=== PATIENT | female | born 1935 | race Two or more races ===

== ENCOUNTER 2017-11-12 23:29 | Observation (INO) | payer MEDICAID, MEDICARE, OTHER ==
[~2017-11-12] VITALS: Ht 154.9 cm; Wt 85.9 kg
[2017-11-12] MEDS ORDERED: ALBUTEROL/IPRATROPIUM 2.5MG/0.5MG, 3 ML ONE (23:54)
[2017-11-12 23:59] LABS: BASOPHILS # (AUTO) 0.05 x10^3/uL (0-0.1); BASOPHILS % (AUTO) 1 % (0-1); EOSINOPHILS # (AUTO) 0.21 x10^3/uL (0-0.4); EOSINOPHILS % (AUTO) 2 % (1-7); LYMPHOCYTES # (AUTO) 1.19 x10^3/uL (1-3.4); LYMPHOCYTES % (AUTO) 12 % (22-44); MD NO; MEAN CORPUSCULAR HEMOGLOBIN 29.7 pg (27.0-34.8); MEAN CORPUSCULAR HGB CONC 33.2 g/dL (32.4-35.8); MEAN CORPUSCULAR VOLUME 89.3 fL (80-100); MEAN PLATELET VOLUME 8.1 fL (7.4-10.4); MONOCYTES # (AUTO) 0.41 x10^3/uL (0.2-0.8); MONOCYTES % (AUTO) 4 % (2-9); NEUTROPHILS # (AUTO) 8.38 x10^3/uL (1.8-6.8); NEUTROPHILS % (AUTO) 82 % (42-75); PLATELET COUNT 220 x10^3/uL (130-400); RED BLOOD COUNT 4.22 x10^6/uL (3.82-5.3); RED CELL DISTRIBUTION WIDTH 13.7 % (9.6-15.2)
[2017-11-13] MEDS ORDERED: ALBUTEROL SULFATE 2.5 MG/3 ML NPPB ONE
[2017-11-13] MEDS ORDERED: IPRATROPIUM 0.5 MG/2.5 ML INHA NPPB ONE
[2017-11-13 00:08] LABS: ALBUMIN 3.2 g/dL (3.4-5.0); ANION GAP 4 mmol/L (5-15); CALCIUM 8.5 mg/dL (8.5-10.1); CHLORIDE 103 mmol/L (98-107); CREATININE 0.87 mg/dL (0.55-1.02)
[2017-11-13 00:12] LABS: TROPONIN I < 0.015 ng/mL (0.000-0.045)
[2017-11-13] MEDS ORDERED: OMNIPAQUE 350 MG/ML, 100ML BOTTLE ONE (01:06)
[2017-11-13] MEDS ORDERED: ALBUTEROL/IPRATROPIUM 2.5MG/0.5MG, 3 ML ONE (02:27)
[2017-11-13] MEDS ORDERED: ALBUTEROL/IPRATROPIUM 2.5MG/0.5MG, 3 ML NPPB ONE (02:30)
[2017-11-13] MEDS ORDERED: AZITHROMYCIN 500 MG TABLET PO ONE (02:30)
[2017-11-13] MEDS ORDERED: SODIUM CHLORIDE 0.9% 1,000 ML IV SCH (02:35)
[2017-11-13] MEDS ORDERED: AZITHROMYCIN 250 MG TABLET ONE (02:46)
[2017-11-13] MEDS ORDERED: ACETAMINOPHEN 325 MG TABLET PO PRN (03:00)
[2017-11-13] MEDS ORDERED: ONDANSETRON 2MG/ML, 2ML IVPush PRN (03:00)
[2017-11-13] MEDS ORDERED: hydrALAzine 20 MG/ML, 1ML IVPush PRN (03:00)
[2017-11-13] MEDS ORDERED: GUAIFENESIN/DM 200-20MG, 10ML UDC PO PRN (03:00)
[2017-11-13] MEDS ORDERED: ONDANSETRON ODT 4 MG PO PRN (03:00)
[2017-11-13] MEDS ORDERED: methylPREDNISolone SOD SUCC 40 MG/ML IVPush SCH (03:00)
[2017-11-13] MEDS ORDERED: POLYETHYLENE GLYCOL 17 GM PACKET PO PRN (03:00)
[2017-11-13] MEDS ORDERED: ALBUTEROL/IPRATROPIUM 2.5MG/0.5MG, 3 ML NPPB PRN (03:30)
[2017-11-13] MEDS: ALBUTEROL/IPRATROPIUM 2.5MG/0.5MG, 3 ML NPPB SCH ×6 (04:41→23:14)
[2017-11-13 07:09] VITALS: BP 118/77
[2017-11-13] MEDS: HEPARIN 5,000 UNITS/ML, 1ML SQ SCH ×2 (08:03→17:24)
[2017-11-13] MEDS ORDERED: METO1TAB32 PO (12:16)
[2017-11-13] MEDS ORDERED: METF500S5 PO (12:16)
[2017-11-13] MEDS ORDERED: FURO40TA6 PO (12:16)
[2017-11-13] MEDS ORDERED: MELO7.5O PO (12:34)
[2017-11-13] MEDS ORDERED: LIOT25TA3 PO (12:37)
[2017-11-13 13:09] VITALS: BP 114/71
[2017-11-13 13:41] VITALS: BP 155/69
[2017-11-13 20:00] VITALS: BP 134/83
[2017-11-13] MEDS ORDERED: ZOLPIDEM 10MG TABLET PO PRN (23:00)
[2017-11-14 01:25] VITALS: BP 152/89
[2017-11-14] MEDS: HEPARIN 5,000 UNITS/ML, 1ML SQ SCH ×2 (01:26→09:54)
[2017-11-14 02:28] LABS: HEMOGLOBIN A1C 6.5 % (4.2-6.3)
[2017-11-14] MEDS ORDERED: SODIUM CHLORIDE 0.9% 1,000 ML IV SCH (02:35)
[2017-11-14] MEDS: ALBUTEROL/IPRATROPIUM 2.5MG/0.5MG, 3 ML NPPB SCH ×2 (05:45→11:25)
[2017-11-14 07:32] VITALS: BP 148/85
[2017-11-14] MEDS ORDERED: CARVEDILOL 6.25 MG TABLET PO SCH (08:00)
[2017-11-14] MEDS ORDERED: CARV6.2512 PO (10:20)
[2017-11-14] MEDS ORDERED: ACET325T14 PO (10:20)
[2017-11-14] MEDS ORDERED: IPRA4AER PO (10:29)
== END 2017-11-14 12:20 | disposition home or self-care (01) ==
LOC: SUATTDRO 11-13 02:34 → ED 11-13 02:48 → INTOOBSV 11-13 03:02 → EDIP 11-13 03:02 → 4NOR 11-13 03:03 → DCLOUNGE 11-14 12:12
PROVIDERS: ADMIT Hospitalist; ATTEND Hospitalist
DX: J96.00 Acute respiratory failure, unspecified whether with hypoxia or hypercapnia (principal); J44.1 Chronic obstructive pulmonary disease with (acute) exacerbation; J98.11 Atelectasis; R60.0 Localized edema; E66.9 Obesity, unspecified; I11.9 Hypertensive heart disease without heart failure; T38.0X5A Adverse effect of glucocorticoids and synthetic analogues, initial encounter; G47.00 Insomnia, unspecified; E11.65 Type 2 diabetes mellitus with hyperglycemia; Z90.49 Acquired absence of other specified parts of digestive tract; Z88.2 Allergy status to sulfonamides; Z91.041 Radiographic dye allergy status; Z79.84 Long term (current) use of oral hypoglycemic drugs; Z79.899 Other long term (current) drug therapy; Z68.35 Body mass index [BMI] 35.0-35.9, adult; Z99.81 Dependence on supplemental oxygen; Z96.612 Presence of left artificial shoulder joint; Y92.89 Other specified places as the place of occurrence of the external cause
CPT/HCPCS: 36415; 71045; 71275; 80048; 82040; 83036; 83605; 83880; 84484; 85025; 85379; 93005; 94640; 96360; 96361; 96372; 97163; 99285; G0378; J1644; J7030; J7512; J7613; J7620; J7644; Q9967

== ENCOUNTER 2017-11-29 15:40 | Inpatient (IN) | payer MEDICARE ==
[~2017-11-29] VITALS: Ht 157.5 cm; Wt 68.1 kg
[~2017-11-29 15:40] MED LIST: ACET325T14 PO; CARV6.2512 PO; FURO40TA6 PO; IPRA4AER PO; LIOT25TA3 PO; MELO7.5O PO; METF500S5 PO; METO1TAB32 PO
[2017-11-29] MEDS ORDERED: ALBUTEROL SULFATE 2.5 MG/3 ML ONE (15:54)
[2017-11-29] MEDS ORDERED: methylPREDNISolone SOD SUCC 125 MG/2 ML ONE (15:55)
[2017-11-29] MEDS ORDERED: methylPREDNISolone SOD SUCC 125 MG/2 ML IVP ONE (16:00)
[2017-11-29] MEDS ORDERED: PLEASE ENTER ALLERGIES MC SCH (16:00)
[2017-11-29] MEDS ORDERED: SODIUM CHLORIDE FLUSH 10ML SYR IVF ONE (16:00)
[2017-11-29] MEDS: PLEASE ENTER HEIGHT AND WEIGHT MC SCH ×2 (16:00→23:44)
[2017-11-29] MEDS ORDERED: ALBUTEROL SULFATE 2.5 MG/3 ML NPPB ONE (16:00)
[2017-11-29 16:01] LABS: MEAN CORPUSCULAR HEMOGLOBIN 29.6 pg (27.0-34.8); MEAN CORPUSCULAR HGB CONC 32.1 g/dL (32.4-35.8); MEAN CORPUSCULAR VOLUME 92.3 fL (80-100); MEAN PLATELET VOLUME 9.4 fL (7.4-10.4); PLATELET COUNT 244 x10^3/uL (130-400); RED BLOOD COUNT 4.35 x10^6/uL (3.82-5.3); RED CELL DISTRIBUTION WIDTH 13.8 % (9.6-15.2)
[2017-11-29 16:10] LABS: INTERNATIONAL NORMALIZED RATIO 0.93 (0.93-1.1); PROTHROMBIN TIME 9.6 Seconds (9.6-11.5)
[2017-11-29 16:35] LABS: BASOPHILS # (AUTO) 0.76 x10^3/uL (0-0.1); BASOPHILS % (AUTO) 10 % (0-1); EOSINOPHILS # (AUTO) 0.68 x10^3/uL (0-0.4); EOSINOPHILS % (AUTO) 9 % (1-7); LYMPHOCYTES # (AUTO) 2.14 x10^3/uL (1-3.4); LYMPHOCYTES % (AUTO) 29 % (22-44); MD SCAN; MONOCYTES # (AUTO) 0.59 x10^3/uL (0.2-0.8); MONOCYTES % (AUTO) 8 % (2-9); NEUTROPHILS # (AUTO) 3.12 x10^3/uL (1.8-6.8); NEUTROPHILS % (AUTO) 43 % (42-75)
[2017-11-29 16:45] LABS: ALBUMIN 3.5 g/dL (3.4-5.0); ANION GAP 17 mmol/L (5-15); CALCIUM 8.9 mg/dL (8.5-10.1); CHLORIDE 103 mmol/L (98-107); CREATININE 1.01 mg/dL (0.55-1.02)
[2017-11-29 16:49] LABS: TROPONIN I 0.091 ng/mL (0.000-0.045)
[2017-11-29] MEDS ORDERED: ACETAMINOPHEN 325 MG TABLET PO PRN ×2 (17:30)
[2017-11-29] MEDS ORDERED: hydrALAzine 20 MG/ML, 1ML IVPush PRN (17:30)
[2017-11-29] MEDS ORDERED: HEPARIN 5,000 UNITS/ML, 1ML SQ SCH (17:30)
[2017-11-29] MEDS ORDERED: ONDANSETRON 2MG/ML, 2ML IVPush PRN (17:30)
[2017-11-29] MEDS ORDERED: ONDANSETRON ODT 4 MG PO PRN (17:30)
[2017-11-29] MEDS ORDERED: DOCUSATE 100 MG CAPSULE PO PRN (17:30)
[2017-11-29] MEDS ORDERED: LABETALOL 5MG/ML, 20ML IVPush PRN (17:30)
[2017-11-29] MEDS ORDERED: BUDE10.2 INH (17:55)
[2017-11-29] MEDS ORDERED: BERBERINE (17:55)
[2017-11-29] MEDS ORDERED: METO200T47 PO (17:55)
[2017-11-29] MEDS ORDERED: GARL400T5 PO (17:55)
[2017-11-29] MEDS ORDERED: ESCI10TA PO (17:55)
[2017-11-29] MEDS ORDERED: FURO20TA3 PO (17:55)
[2017-11-29] MEDS ORDERED: MELO7.5T31 PO (17:55)
[2017-11-29] MEDS ORDERED: [UNRECOGNIZED DRUG - OTHER] (17:55)
[2017-11-29 18:31] VITALS: BP 114/76
[2017-11-29] MEDS: ALBUTEROL/IPRATROPIUM 2.5MG/0.5MG, 3 ML NPPB SCH ×2 (18:57→23:00)
[2017-11-29] MEDS ORDERED: ALBUTEROL/IPRATROPIUM 2.5MG/0.5MG, 3 ML NPPB SCH (21:00)
[2017-11-29] MEDS: CARVEDILOL 6.25 MG TABLET PO SCH (21:00)
[2017-11-29] MEDS: methylPREDNISolone SOD SUCC 125 MG/2 ML IVPush SCH (21:01)
[2017-11-29] MEDS ORDERED: HEPARIN 5,000 UNITS/ML, 1ML IV ONE (22:30)
[2017-11-29] MEDS ORDERED: HEPARIN 5,000 UNITS/ML, 1ML IV PRN (22:30)
[2017-11-29] MEDS ORDERED: HEPARIN 25,000 UNITS/500ML PMX 500 ML IV PRN (22:30)
[2017-11-30] MEDS ORDERED: DIPHENHYDRAMINE 50 MG/ML, 1ML IVPush ONE ×2 (00:30→15:30)
[2017-11-30 00:39] VITALS: BP 126/85
[2017-11-30] MEDS ORDERED: OMNIPAQUE 350 MG/ML, 100ML BOTTLE ONE (01:32)
[2017-11-30 01:51] VITALS: BP 139/78
[2017-11-30 02:30] VITALS: BP 121/79
[2017-11-30] MEDS ORDERED: MORPHINE SULFATE 4 MG/ML, 1ML IVPush PRN (02:30)
[2017-11-30] MEDS: ALBUTEROL/IPRATROPIUM 2.5MG/0.5MG, 3 ML NPPB SCH ×6 (02:56→19:43)
[2017-11-30] MEDS: CARVEDILOL 6.25 MG TABLET PO SCH ×2 (05:24→18:15)
[2017-11-30] MEDS: methylPREDNISolone SOD SUCC 125 MG/2 ML IVPush SCH ×3 (05:24→22:07)
[2017-11-30 06:03] LABS: ANION GAP 8 mmol/L (5-15); CALCIUM 9.2 mg/dL (8.5-10.1); CHLORIDE 102 mmol/L (98-107); CREATININE 0.96 mg/dL (0.55-1.02)
[2017-11-30 06:06] LABS: BASOPHILS % (AUTO) 0 % (0-1); EOSINOPHILS # (AUTO) 0.02 x10^3/uL (0-0.4); EOSINOPHILS % (AUTO) 0 % (1-7); LYMPHOCYTES # (AUTO) 0.63 x10^3/uL (1-3.4); LYMPHOCYTES % (AUTO) 10 % (22-44); MD NO; MEAN CORPUSCULAR HEMOGLOBIN 29.9 pg (27.0-34.8); MEAN CORPUSCULAR HGB CONC 32.9 g/dL (32.4-35.8); MEAN PLATELET VOLUME 9.2 fL (7.4-10.4); MONOCYTES # (AUTO) 0.06 x10^3/uL (0.2-0.8); MONOCYTES % (AUTO) 1 % (2-9); NEUTROPHILS # (AUTO) 5.48 x10^3/uL (1.8-6.8); NEUTROPHILS % (AUTO) 89 % (42-75); PLATELET COUNT 229 x10^3/uL (130-400); RED BLOOD COUNT 4.16 x10^6/uL (3.82-5.3); RED CELL DISTRIBUTION WIDTH 13.4 % (9.6-15.2)
[2017-11-30 06:12] LABS: THYROID STIMULATING HORMONE 0.181 mIU/L (0.358-3.740)
[2017-11-30] MEDS: INSULIN LISPRO 100 UNITS/ML, PEN SQ-INSULIN SCH ×4 (07:00→22:08)
[2017-11-30 07:50] VITALS: BP 125/76
[2017-11-30] MEDS ORDERED: ASPIRIN 325 MG TABLET EC PO ONE (08:30)
[2017-11-30] MEDS: LIOTHYRONINE 25 MCG TABLET PO SCH (08:50)
[2017-11-30] MEDS ORDERED: FENTANYL PF 100 MCG/2ML ONE (13:35)
[2017-11-30] MEDS ORDERED: MIDAZOLAM 1 MG/ML, 5ML ONE (13:36)
[2017-11-30] MEDS ORDERED: methylPREDNISolone SOD SUCC 125 MG/2 ML ONE (13:36)
[2017-11-30] MEDS ORDERED: VERAPAMIL 2.5 MG/ML, 2ML ONE (13:36)
[2017-11-30] MEDS ORDERED: DIPHENHYDRAMINE 50 MG/ML, 1ML ONE (13:49)
[2017-11-30] MEDS ORDERED: methylPREDNISolone SOD SUCC 125 MG/2 ML IVPush SCH (15:30)
[2017-11-30] MEDS ORDERED: LIDOCAINE/PF 1%, 30ML ONE (15:31)
[2017-11-30] MEDS ORDERED: CLOPIDOGREL 300 MG TABLET ONE (15:41)
[2017-11-30] MEDS ORDERED: BIVALIRUDIN 250 MG ONE (15:41)
[2017-11-30] MEDS: SODIUM CHLORIDE 0.9% 1,000 ML IV SCH (16:12)
[2017-11-30] MEDS: NORTRIPTYLINE 10 MG CAPSULE PO SCH ×2 (18:15→22:06)
[2017-11-30 20:15] VITALS: BP 109/70
[2017-12-01] MEDS: SODIUM CHLORIDE 0.9% 1,000 ML IV SCH ×2 (00:12→08:12)
[2017-12-01 02:06] VITALS: BP 115/73
[2017-12-01] MEDS ORDERED: ALBUTEROL/IPRATROPIUM 2.5MG/0.5MG, 3 ML NPPB PRN (03:00)
[2017-12-01] MEDS: CARVEDILOL 6.25 MG TABLET PO SCH (05:17)
[2017-12-01] MEDS: methylPREDNISolone SOD SUCC 125 MG/2 ML IVPush SCH (05:17)
[2017-12-01 05:40] LABS: ALBUMIN 3.2 g/dL (3.4-5.0); ANION GAP 8 mmol/L (5-15); CALCIUM 9.4 mg/dL (8.5-10.1); CHLORIDE 103 mmol/L (98-107); CREATININE 0.91 mg/dL (0.55-1.02)
[2017-12-01 06:50] VITALS: BP 131/77
[2017-12-01] MEDS: INSULIN LISPRO 100 UNITS/ML, PEN SQ-INSULIN SCH (07:00)
[2017-12-01] MEDS: ALBUTEROL/IPRATROPIUM 2.5MG/0.5MG, 3 ML NPPB SCH (07:25)
[2017-12-01] MEDS: NORTRIPTYLINE 10 MG CAPSULE PO SCH (08:01)
[2017-12-01] MEDS: LIOTHYRONINE 25 MCG TABLET PO SCH (08:01)
[2017-12-01] MEDS ORDERED: CLOPIDOGREL 75 MG TABLET PO SCH (09:00)
[2017-12-01] MEDS ORDERED: CARV6.2512 PO (10:08)
[2017-12-01] MEDS ORDERED: CLOP75TA PO (10:08)
[2017-12-01] MEDS ORDERED: ASPI-621 PO (10:08)
[2017-12-01] MEDS ORDERED: ATOR40TA78 PO (10:23)
[2017-12-01 11:15] LABS: CHOL/HDL RATIO 3.3; LDL/HDL RATIO 2.1 (0.5-3.0)
[2017-12-01] MEDS ORDERED: ATORVASTATIN 40 MG TABLET PO SCH (21:00)
== END 2017-12-01 12:24 | disposition home or self-care (01) | DRG 248 ==
LOC: EDBD → MERGE 15:40 → ED 17:21 → EDIP 17:22 → ED 17:32 → 5SO 18:26
PROVIDERS: ADMIT Internal Medicine; ATTEND Internal Medicine
PROC: 4A023N7 Measurement of Cardiac Sampling and Pressure, Left Heart, Percutaneous Approach (ICD-10-PCS; principal; 2017-11-29)
PROC: 02703DZ Dilation of Coronary Artery, One Artery with Intraluminal Device, Percutaneous Approach (ICD-10-PCS; 2017-11-29)
PROC: B2111ZZ Fluoroscopy of Multiple Coronary Arteries using Low Osmolar Contrast (ICD-10-PCS; 2017-11-29)
PROC: B2151ZZ Fluoroscopy of Left Heart using Low Osmolar Contrast (ICD-10-PCS; 2017-11-29)
PROC: B4101ZZ Fluoroscopy of Abdominal Aorta using Low Osmolar Contrast (ICD-10-PCS; 2017-11-29)
PROC: B41J1ZZ Fluoroscopy of Other Lower Arteries using Low Osmolar Contrast (ICD-10-PCS; 2017-11-29)
DX: I21.4 Non-ST elevation (NSTEMI) myocardial infarction (principal); J96.21 Acute and chronic respiratory failure with hypoxia; J44.1 Chronic obstructive pulmonary disease with (acute) exacerbation; I10 Essential (primary) hypertension; F32.9 Major depressive disorder, single episode, unspecified; E11.65 Type 2 diabetes mellitus with hyperglycemia; E03.9 Hypothyroidism, unspecified; I25.110 Atherosclerotic heart disease of native coronary artery with unstable angina pectoris; K21.9 Gastro-esophageal reflux disease without esophagitis; Z82.5 Family history of asthma and other chronic lower respiratory diseases; Z87.891 Personal history of nicotine dependence; Z90.710 Acquired absence of both cervix and uterus; Z99.81 Dependence on supplemental oxygen; Z88.2 Allergy status to sulfonamides; Z91.041 Radiographic dye allergy status
CPT/HCPCS: 36415; 71045; 71275; 80048; 80061; 82040; 82962; 83880; 84443; 84484; 85014; 85018; 85025; 85379; 85520; 85610; 85730; 86850; 86900; 90656; 92928; 93005; 93306; 93458; 94640; 99156; 99157; 99285; C1760; C1769; C1876; C1894; G0378; J0583; J1644; J2250; J3010; J3490; J7613; J7620; Q9967; C1725; C1887; J1200; J1815; J2930

== ENCOUNTER 2017-12-23 13:28 | Inpatient (IN) | payer MEDICARE ==
[~2017-12-23] VITALS: Ht 154.9 cm; Wt 78.2 kg
[~2017-12-23 13:28] MED LIST changes: +ASPI-621 PO; +ATOR40TA78 PO; +BERBERINE; +BUDE10.2 INH; +CLOP75TA PO; +ESCI10TA PO; +FURO20TA3 PO; +GARL400T5 PO; +MELO7.5T31 PO; +METO200T47 PO; +[UNRECOGNIZED DRUG - OTHER]
[2017-12-23] MEDS ORDERED: ASPIRIN 81 MG TABLET CHEW PO ONE (14:00)
[2017-12-23] MEDS ORDERED: LORazepam 2 MG/ML, 1ML IVPush ONE (14:00)
[2017-12-23 14:18] LABS: BASOPHILS # (AUTO) 0.07 x10^3/uL (0-0.1); BASOPHILS % (AUTO) 1 % (0-1); EOSINOPHILS # (AUTO) 0.64 x10^3/uL (0-0.4); EOSINOPHILS % (AUTO) 10 % (1-7); LYMPHOCYTES # (AUTO) 1.08 x10^3/uL (1-3.4); LYMPHOCYTES % (AUTO) 17 % (22-44); MD NO; MEAN CORPUSCULAR HEMOGLOBIN 29.7 pg (27.0-34.8); MEAN CORPUSCULAR VOLUME 90.1 fL (80-100); MEAN PLATELET VOLUME 8.8 fL (7.4-10.4); MONOCYTES # (AUTO) 0.67 x10^3/uL (0.2-0.8); MONOCYTES % (AUTO) 11 % (2-9); NEUTROPHILS # (AUTO) 3.72 x10^3/uL (1.8-6.8); NEUTROPHILS % (AUTO) 60 % (42-75); PLATELET COUNT 213 x10^3/uL (130-400); RED CELL DISTRIBUTION WIDTH 13.6 % (9.6-15.2)
[2017-12-23 14:27] LABS: ALBUMIN 3.4 g/dL (3.4-5.0); ANION GAP 6 mmol/L (5-15); CALCIUM 8.8 mg/dL (8.5-10.1); CHLORIDE 106 mmol/L (98-107); CREATININE 0.98 mg/dL (0.55-1.02)
[2017-12-23] MEDS ORDERED: CEFTRIAXONE PMX 1GM/50ML 50 ML IVPB ONE (14:30)
[2017-12-23 14:31] LABS: TROPONIN I < 0.015 ng/mL (0.000-0.045)
[2017-12-23] MEDS ORDERED: ALBUTEROL/IPRATROPIUM 2.5MG/0.5MG, 3 ML ONE ×2 (14:43→15:22)
[2017-12-23] MEDS: ALBUTEROL/IPRATROPIUM 2.5MG/0.5MG, 3 ML NPPB SCH ×4 (14:46→19:12)
[2017-12-23] MEDS ORDERED: ALBUTEROL/IPRATROPIUM 2.5MG/0.5MG, 3 ML NPPB SCH (15:00)
[2017-12-23] MEDS ORDERED: ASPIRIN 81 MG TABLET CHEW ONE (15:03)
[2017-12-23] MEDS ORDERED: CEFTRIAXONE PMX 1GM/50ML 50 ML ONE (15:03)
[2017-12-23] MEDS ORDERED: LORazepam 2 MG/ML, 1ML ONE (15:03)
[2017-12-23] MEDS ORDERED: SODIUM CHLORIDE FLUSH 10ML SYR IVF PRN (15:30)
[2017-12-23] MEDS ORDERED: hydrALAzine 20 MG/ML, 1ML IVPush PRN (16:00)
[2017-12-23] MEDS ORDERED: morphine SULFATE 10 MG/ML, 1ML IVPush PRN (16:00)
[2017-12-23] MEDS ORDERED: ONDANSETRON 2MG/ML, 2ML IVPush PRN (16:00)
[2017-12-23] MEDS ORDERED: ALBUTEROL/IPRATROPIUM 2.5MG/0.5MG, 3 ML NPPB PRN (16:30)
[2017-12-23] MEDS: INSULIN LISPRO 100 UNITS/ML, PEN SQ-INSULIN SCH ×2 (16:30→21:36)
[2017-12-23 16:47] VITALS: BP 141/86
[2017-12-23] MEDS: CEFTRIAXONE PMX 1GM/50ML 50 ML IV SCH (17:30)
[2017-12-23] MEDS: ENOXAPARIN 40 MG/0.4 ML SQ SCH (17:37)
[2017-12-23] MEDS: CALCIUM/VITAMIN D3 250-125 TABLET PO SCH ×2 (17:38→21:00)
[2017-12-23] MEDS: methylPREDNISolone SOD SUCC 125 MG/2 ML IVPush SCH ×2 (17:38→22:36)
[2017-12-23] MEDS: AZITHROMYCIN 500 MG in SODIUM CHLORIDE 0.9% 250 ML IV SCH (17:38)
[2017-12-23] MEDS: CARVEDILOL 6.25 MG TABLET PO SCH (17:38)
[2017-12-23 19:54] VITALS: BP 135/85
[2017-12-23] MEDS: ZOLPIDEM 5MG TABLET PO PRN (21:00)
[2017-12-23] MEDS: ATORVASTATIN 40 MG TABLET PO SCH (21:00)
[2017-12-24 02:16] VITALS: BP 156/104
[2017-12-24] MEDS: ALBUTEROL/IPRATROPIUM 2.5MG/0.5MG, 3 ML NPPB SCH ×6 (03:25→23:00)
[2017-12-24] MEDS ORDERED: GABAPENTIN 300 MG CAPSULE ONE (03:42)
[2017-12-24] MEDS: GABAPENTIN 300 MG CAPSULE PO SCH ×4 (03:44→16:44)
[2017-12-24] MEDS ORDERED: GABAPENTIN 300 MG CAPSULE PO SCH ×3 (04:00→18:00)
[2017-12-24] MEDS ORDERED: METO-264 PO (06:30)
[2017-12-24] MEDS ORDERED: FURO20TA3 PO (06:30)
[2017-12-24] MEDS ORDERED: LEVO25TA2 PO (06:30)
[2017-12-24] MEDS: methylPREDNISolone SOD SUCC 125 MG/2 ML IVPush SCH ×3 (06:32→16:44)
[2017-12-24] MEDS: CARVEDILOL 6.25 MG TABLET PO SCH ×2 (06:32→16:45)
[2017-12-24] MEDS: ACETAMINOPHEN 325 MG TABLET PO PRN ×2 (06:42→11:28)
[2017-12-24] MEDS: INSULIN LISPRO 100 UNITS/ML, PEN SQ-INSULIN SCH ×4 (07:00→20:41)
[2017-12-24 07:33] VITALS: BP 147/86
[2017-12-24] MEDS: GUAIFENESIN ER 600 MG TABLET PO SCH ×2 (09:00→20:33)
[2017-12-24 09:27] LABS: BASOPHILS # (AUTO) 0.01 x10^3/uL (0-0.1); BASOPHILS % (AUTO) 0 % (0-1); EOSINOPHILS % (AUTO) 0 % (1-7); LYMPHOCYTES % (AUTO) 11 % (22-44); MD NO; MEAN CORPUSCULAR HEMOGLOBIN 29.3 pg (27.0-34.8); MEAN CORPUSCULAR HGB CONC 32.7 g/dL (32.4-35.8); MEAN CORPUSCULAR VOLUME 89.7 fL (80-100); MEAN PLATELET VOLUME 8.4 fL (7.4-10.4); MONOCYTES # (AUTO) 0.05 x10^3/uL (0.2-0.8); MONOCYTES % (AUTO) 1 % (2-9); NEUTROPHILS # (AUTO) 3.97 x10^3/uL (1.8-6.8); NEUTROPHILS % (AUTO) 88 % (42-75); PLATELET COUNT 197 x10^3/uL (130-400); RED BLOOD COUNT 3.95 x10^6/uL (3.82-5.3); RED CELL DISTRIBUTION WIDTH 13.5 % (9.6-15.2)
[2017-12-24 09:39] LABS: ALANINE AMINOTRANSFERASE 23 U/L (12-78); ALBUMIN 3.4 g/dL (3.4-5.0); ANION GAP 6 mmol/L (5-15); CALCIUM 9.4 mg/dL (8.5-10.1); CHLORIDE 103 mmol/L (98-107); CREATININE 0.71 mg/dL (0.55-1.02)
[2017-12-24 09:41] LABS: ALKALINE PHOSPHATASE 100 U/L (45-117); BILIRUBIN,TOTAL 0.3 mg/dL (0.2-1.0); TOTAL PROTEIN 6.3 g/dL (6.4-8.2)
[2017-12-24 10:34] LABS: HEMOGLOBIN A1C 6.9 % (4.2-6.3)
[2017-12-24] MEDS: CALCIUM/VITAMIN D3 250-125 TABLET PO SCH ×3 (11:27→20:33)
[2017-12-24] MEDS: ASPIRIN 81 MG TABLET EC PO SCH (11:28)
[2017-12-24] MEDS: LIOTHYRONINE 25 MCG TABLET PO SCH (11:28)
[2017-12-24 13:30] VITALS: BP 101/73
[2017-12-24] MEDS: CEFTRIAXONE PMX 1GM/50ML 50 ML IV SCH (16:43)
[2017-12-24] MEDS: ENOXAPARIN 40 MG/0.4 ML SQ SCH (16:44)
[2017-12-24] MEDS: AZITHROMYCIN 500 MG in SODIUM CHLORIDE 0.9% 250 ML IV SCH (16:47)
[2017-12-24 19:58] VITALS: BP 129/74
[2017-12-24] MEDS: ATORVASTATIN 40 MG TABLET PO SCH (20:33)
[2017-12-25] MEDS: methylPREDNISolone SOD SUCC 125 MG/2 ML IVPush SCH ×2 (00:37→05:20)
[2017-12-25 02:17] VITALS: BP 120/75
[2017-12-25] MEDS: ALBUTEROL/IPRATROPIUM 2.5MG/0.5MG, 3 ML NPPB SCH ×6 (03:00→19:00)
[2017-12-25] MEDS: CARVEDILOL 6.25 MG TABLET PO SCH ×2 (05:21→18:32)
[2017-12-25 06:59] VITALS: BP 141/92
[2017-12-25] MEDS: INSULIN LISPRO 100 UNITS/ML, PEN SQ-INSULIN SCH ×4 (07:47→19:49)
[2017-12-25] MEDS: GABAPENTIN 300 MG CAPSULE PO SCH ×3 (07:49→18:30)
[2017-12-25] MEDS: GUAIFENESIN ER 600 MG TABLET PO SCH ×2 (07:50→19:58)
[2017-12-25] MEDS: CALCIUM/VITAMIN D3 250-125 TABLET PO SCH ×3 (07:50→19:58)
[2017-12-25] MEDS: ASPIRIN 81 MG TABLET EC PO SCH (07:50)
[2017-12-25] MEDS: LIOTHYRONINE 25 MCG TABLET PO SCH (07:50)
[2017-12-25 07:57] LABS: BASOPHILS % (AUTO) 0 % (0-1); EOSINOPHILS % (AUTO) 0 % (1-7); LYMPHOCYTES # (AUTO) 0.34 x10^3/uL (1-3.4); LYMPHOCYTES % (AUTO) 4 % (22-44); MD NO; MEAN CORPUSCULAR HEMOGLOBIN 29.6 pg (27.0-34.8); MEAN CORPUSCULAR HGB CONC 33.1 g/dL (32.4-35.8); MEAN CORPUSCULAR VOLUME 89.5 fL (80-100); MEAN PLATELET VOLUME 8.9 fL (7.4-10.4); MONOCYTES # (AUTO) 0.33 x10^3/uL (0.2-0.8); MONOCYTES % (AUTO) 3 % (2-9); NEUTROPHILS # (AUTO) 8.93 x10^3/uL (1.8-6.8); NEUTROPHILS % (AUTO) 93 % (42-75); PLATELET COUNT 202 x10^3/uL (130-400); RED BLOOD COUNT 4.02 x10^6/uL (3.82-5.3); RED CELL DISTRIBUTION WIDTH 13.3 % (9.6-15.2)
[2017-12-25] MEDS: CITALOPRAM 20 MG TABLET PO SCH (08:02)
[2017-12-25 08:03] LABS: ANION GAP 8 mmol/L (5-15); CALCIUM 8.7 mg/dL (8.5-10.1); CHLORIDE 104 mmol/L (98-107)
[2017-12-25 14:52] VITALS: BP_SYST 124; BP_SYST 136; BP_DIAS 65; BP_DIAS 76
[2017-12-25] MEDS: CEFTRIAXONE PMX 1GM/50ML 50 ML IV SCH (17:39)
[2017-12-25] MEDS: ENOXAPARIN 40 MG/0.4 ML SQ SCH (17:40)
[2017-12-25] MEDS: AZITHROMYCIN 500 MG in SODIUM CHLORIDE 0.9% 250 ML IV SCH (18:30)
[2017-12-25 18:51] VITALS: BP 140/78
[2017-12-25] MEDS: ATORVASTATIN 40 MG TABLET PO SCH (19:58)
[2017-12-25] MEDS: ZOLPIDEM 5MG TABLET PO PRN (19:58)
[2017-12-26 02:01] VITALS: BP 131/80
[2017-12-26] MEDS: ALBUTEROL/IPRATROPIUM 2.5MG/0.5MG, 3 ML NPPB SCH ×3 (03:00→09:45)
[2017-12-26] MEDS: CARVEDILOL 6.25 MG TABLET PO SCH (05:46)
[2017-12-26] MEDS: INSULIN LISPRO 100 UNITS/ML, PEN SQ-INSULIN SCH ×2 (07:00→11:18)
[2017-12-26 07:15] VITALS: BP 139/74
[2017-12-26] MEDS: CALCIUM/VITAMIN D3 250-125 TABLET PO SCH (07:31)
[2017-12-26] MEDS: LIOTHYRONINE 25 MCG TABLET PO SCH (07:31)
[2017-12-26] MEDS: ASPIRIN 81 MG TABLET EC PO SCH (07:31)
[2017-12-26] MEDS: GABAPENTIN 300 MG CAPSULE PO SCH ×2 (07:32→11:13)
[2017-12-26] MEDS: CITALOPRAM 20 MG TABLET PO SCH (07:32)
[2017-12-26] MEDS: GUAIFENESIN ER 600 MG TABLET PO SCH (07:32)
[2017-12-26] MEDS ORDERED: PRED20TA PO (08:27)
[2017-12-26] MEDS ORDERED: IPRA3AMP30 NPPB (08:27)
[2017-12-26] MEDS ORDERED: GUAI600T31 PO (08:27)
[2017-12-26] MEDS ORDERED: IPRA4AER PO (08:27)
[2017-12-26] MEDS ORDERED: AZIT250T89 PO (08:27)
[2017-12-26] MEDS ORDERED: CEFD300C37 PO (08:27)
== END 2017-12-26 13:40 | disposition home health service (06) | DRG 871 ==
LOC: ED 15:58 → EDIP 15:59 → 3NE 16:28 → DCLOUNGE 12-26 13:15
PROVIDERS: ADMIT Internal Medicine; ATTEND Internal Medicine
DX: A41.9 Sepsis, unspecified organism (principal); J15.9 Unspecified bacterial pneumonia; J96.11 Chronic respiratory failure with hypoxia; J44.0 Chronic obstructive pulmonary disease with (acute) lower respiratory infection; J44.1 Chronic obstructive pulmonary disease with (acute) exacerbation; M41.9 Scoliosis, unspecified; M81.0 Age-related osteoporosis without current pathological fracture; E03.9 Hypothyroidism, unspecified; E11.9 Type 2 diabetes mellitus without complications; I11.9 Hypertensive heart disease without heart failure; Z95.5 Presence of coronary angioplasty implant and graft; Z99.81 Dependence on supplemental oxygen; Z88.3 Allergy status to other anti-infective agents; Z88.2 Allergy status to sulfonamides; I25.10 Atherosclerotic heart disease of native coronary artery without angina pectoris; M79.7 Fibromyalgia; Z90.710 Acquired absence of both cervix and uterus; F32.9 Major depressive disorder, single episode, unspecified
CPT/HCPCS: 36415; 71045; 80048; 80053; 82040; 82962; 83036; 83605; 83880; 84145; 84443; 84484; 85025; 87040; 87205; 93005; 94640; 96365; 96375; 99285; G0378; J0456; J0696; J1650; J7620; J1815; J2060; J2930; J7050; J7512

== ENCOUNTER 2018-01-07 08:38 | Emergency (ER) | payer MEDICARE ==
[~2018-01-07] VITALS: Ht 154.9 cm; Wt 82.0 kg
[~2018-01-07 08:38] MED LIST changes: +AZIT250T89 PO; +CEFD300C37 PO; +GUAI600T31 PO; +IPRA3AMP30 NPPB; +LEVO25TA2 PO; +METO-264 PO; +PRED20TA PO
[2018-01-07] MEDS ORDERED: SODIUM CHLORIDE FLUSH 10ML SYR IVF ONE (10:00)
[2018-01-07] MEDS ORDERED: METHOCARBAMOL 750 MG TABLET PO ONE (10:00)
[2018-01-07] MEDS ORDERED: METHOCARBAMOL 750 MG TABLET ONE (10:06)
[2018-01-07 10:10] VITALS: BP 133/78
[2018-01-07 10:14] LABS: BASOPHILS # (AUTO) 0.01 x10^3/uL (0-0.1); BASOPHILS % (AUTO) 0 % (0-1); EOSINOPHILS # (AUTO) 0.25 x10^3/uL (0-0.4); EOSINOPHILS % (AUTO) 3 % (1-7); LYMPHOCYTES % (AUTO) 13 % (22-44); MD NO; MEAN CORPUSCULAR HEMOGLOBIN 29.6 pg (27.0-34.8); MEAN CORPUSCULAR HGB CONC 32.9 g/dL (32.4-35.8); MEAN CORPUSCULAR VOLUME 90.2 fL (80-100); MONOCYTES # (AUTO) 0.72 x10^3/uL (0.2-0.8); MONOCYTES % (AUTO) 10 % (2-9); NEUTROPHILS % (AUTO) 74 % (42-75); PLATELET COUNT 199 x10^3/uL (130-400); RED BLOOD COUNT 4.12 x10^6/uL (3.82-5.3); RED CELL DISTRIBUTION WIDTH 13.9 % (9.6-15.2)
[2018-01-07 10:21] LABS: INTERNATIONAL NORMALIZED RATIO 0.94 (0.93-1.1); PROTHROMBIN TIME 9.8 Seconds (9.6-11.5)
[2018-01-07 10:25] LABS: ALBUMIN 3.2 g/dL (3.4-5.0); ANION GAP 8 mmol/L (5-15); CALCIUM 8.9 mg/dL (8.5-10.1); CHLORIDE 102 mmol/L (98-107); CREATININE 0.69 mg/dL (0.55-1.02)
[2018-01-07 10:30] LABS: ALKALINE PHOSPHATASE 85 U/L (45-117); BILIRUBIN,TOTAL 0.3 mg/dL (0.2-1.0); TOTAL PROTEIN 6.1 g/dL (6.4-8.2); TROPONIN I < 0.015 ng/mL (0.000-0.045)
[2018-01-07 10:33] LABS: ALANINE AMINOTRANSFERASE 27 U/L (12-78)
== END 2018-01-07 11:59 | disposition home or self-care (01) ==
LOC: ED 11:53
DX: K29.00 Acute gastritis without bleeding (principal); M62.831 Muscle spasm of calf; I10 Essential (primary) hypertension; E11.9 Type 2 diabetes mellitus without complications; J44.9 Chronic obstructive pulmonary disease, unspecified
CPT/HCPCS: 36415; 71046; 80053; 83880; 84484; 85025; 85610; 85730; 93005; 99285

== ENCOUNTER 2018-01-12 14:39 | Emergency (ER) | payer MEDICARE ==
[~2018-01-12] VITALS: Ht 154.9 cm; Wt 80.0 kg
[2018-01-12] MEDS ORDERED: LORazepam 2 MG/ML, 1ML ONE (14:52)
[2018-01-12] MEDS ORDERED: LORazepam 2 MG/ML, 1ML IVPush ONE (15:00)
[2018-01-12] MEDS ORDERED: SODIUM CHLORIDE FLUSH 10ML SYR IVF ONE (15:00)
[2018-01-12 15:23] LABS: BASOPHILS % (AUTO) 0 % (0-1); EOSINOPHILS # (AUTO) 0.14 x10^3/uL (0-0.4); EOSINOPHILS % (AUTO) 3 % (1-7); LYMPHOCYTES # (AUTO) 1.41 x10^3/uL (1-3.4); LYMPHOCYTES % (AUTO) 25 % (22-44); MD NO; MEAN CORPUSCULAR HGB CONC 32.4 g/dL (32.4-35.8); MEAN CORPUSCULAR VOLUME 89.4 fL (80-100); MEAN PLATELET VOLUME 8.4 fL (7.4-10.4); MONOCYTES % (AUTO) 11 % (2-9); NEUTROPHILS # (AUTO) 3.49 x10^3/uL (1.8-6.8); NEUTROPHILS % (AUTO) 62 % (42-75); PLATELET COUNT 215 x10^3/uL (130-400); RED BLOOD COUNT 4.28 x10^6/uL (3.82-5.3); RED CELL DISTRIBUTION WIDTH 13.9 % (9.6-15.2)
[2018-01-12 15:29] LABS: ALBUMIN 3.3 g/dL (3.4-5.0); ANION GAP 8 mmol/L (5-15); CALCIUM 9.2 mg/dL (8.5-10.1); CHLORIDE 101 mmol/L (98-107); CREATININE 0.75 mg/dL (0.55-1.02)
[2018-01-12 15:33] LABS: TROPONIN I < 0.015 ng/mL (0.000-0.045)
[2018-01-12 15:38] LABS: INTERNATIONAL NORMALIZED RATIO 0.93 (0.93-1.1); PROTHROMBIN TIME 9.7 Seconds (9.6-11.5)
[2018-01-12 16:01] VITALS: BP 145/71
== END 2018-01-12 17:03 | disposition home or self-care (01) ==
LOC: ED 16:50
DX: F41.1 Generalized anxiety disorder (principal); J44.9 Chronic obstructive pulmonary disease, unspecified; I10 Essential (primary) hypertension; E11.9 Type 2 diabetes mellitus without complications
CPT/HCPCS: 36415; 71045; 80048; 82040; 83880; 84484; 85025; 85610; 93005; 96374; 99285; J2060

== ENCOUNTER 2018-01-27 13:43 | Emergency (ER) | payer MEDICARE ==
[~2018-01-27] VITALS: Ht 157.5 cm; Wt 80.0 kg
[~2018-01-27 13:43] MED LIST changes: -ASPI-621 PO; +ASPI81TA45 PO
[2018-01-27] MEDS ORDERED: LORazepam 0.5MG TABLET ONE (14:14)
[2018-01-27 14:22] LABS: BASOPHILS # (AUTO) 0.05 x10^3/uL (0-0.1); BASOPHILS % (AUTO) 1 % (0-1); EOSINOPHILS # (AUTO) 0.22 x10^3/uL (0-0.4); EOSINOPHILS % (AUTO) 3 % (1-7); LYMPHOCYTES # (AUTO) 1.55 x10^3/uL (1-3.4); LYMPHOCYTES % (AUTO) 23 % (22-44); MD NO; MEAN CORPUSCULAR HEMOGLOBIN 29.6 pg (27.0-34.8); MEAN CORPUSCULAR HGB CONC 32.9 g/dL (32.4-35.8); MEAN PLATELET VOLUME 8.2 fL (7.4-10.4); MONOCYTES # (AUTO) 0.71 x10^3/uL (0.2-0.8); MONOCYTES % (AUTO) 11 % (2-9); NEUTROPHILS # (AUTO) 4.13 x10^3/uL (1.8-6.8); NEUTROPHILS % (AUTO) 62 % (42-75); PLATELET COUNT 228 x10^3/uL (130-400); RED BLOOD COUNT 4.23 x10^6/uL (3.82-5.3); RED CELL DISTRIBUTION WIDTH 14.1 % (9.6-15.2)
[2018-01-27] MEDS ORDERED: LORazepam 0.5MG TABLET PO ONE (14:30)
[2018-01-27 14:33] LABS: ALBUMIN 3.4 g/dL (3.4-5.0); ANION GAP 8 mmol/L (5-15); CALCIUM 8.7 mg/dL (8.5-10.1); CHLORIDE 102 mmol/L (98-107); CREATININE 0.84 mg/dL (0.55-1.02)
[2018-01-27 14:37] LABS: TROPONIN I < 0.015 ng/mL (0.000-0.045)
[2018-01-27 15:13] VITALS: BP 113/79
== END 2018-01-27 16:04 | disposition home or self-care (01) ==
LOC: ED 15:09
DX: F41.1 Generalized anxiety disorder (principal); G25.81 Restless legs syndrome; Z76.0 Encounter for issue of repeat prescription; E11.9 Type 2 diabetes mellitus without complications; I10 Essential (primary) hypertension
CPT/HCPCS: 36415; 71045; 80048; 82040; 83880; 84484; 85025; 93005; 99284

== ENCOUNTER 2018-02-27 03:34 | Inpatient (IN) | payer MEDICARE ==
[~2018-02-27] VITALS: Ht 157.5 cm; Wt 85.7 kg
[2018-02-27] MEDS ORDERED: ALBUTEROL SULFATE 2.5 MG/3 ML ONE (03:45)
[2018-02-27] MEDS ORDERED: ASPIRIN 81 MG TABLET CHEW PO ONE (04:00)
[2018-02-27] MEDS ORDERED: ALBUTEROL 0.5%, 20ML NPPB SCH (04:00)
[2018-02-27] MEDS ORDERED: AZITHROMYCIN 500 MG in SODIUM CHLORIDE 0.9% 250 ML IVPB ONE (04:00)
[2018-02-27] MEDS ORDERED: methylPREDNISolone SOD SUCC 125 MG/2 ML IVP ONE (04:00)
[2018-02-27] MEDS ORDERED: ASPIRIN 81 MG TABLET EC ONE ×2 (04:01→04:59)
[2018-02-27] MEDS ORDERED: methylPREDNISolone SOD SUCC 125 MG/2 ML ONE ×2 (04:02→10:01)
[2018-02-27 04:20] LABS: BASOPHILS # (AUTO) 0.01 x10^3/uL (0-0.1); BASOPHILS % (AUTO) 0 % (0-1); EOSINOPHILS # (AUTO) 0.65 x10^3/uL (0-0.4); EOSINOPHILS % (AUTO) 7 % (1-7); LYMPHOCYTES # (AUTO) 1.04 x10^3/uL (1-3.4); LYMPHOCYTES % (AUTO) 12 % (22-44); MD NO; MEAN CORPUSCULAR HEMOGLOBIN 29.9 pg (27.0-34.8); MEAN CORPUSCULAR VOLUME 90.7 fL (80-100); MEAN PLATELET VOLUME 8.7 fL (7.4-10.4); MONOCYTES # (AUTO) 0.46 x10^3/uL (0.2-0.8); MONOCYTES % (AUTO) 5 % (2-9); NEUTROPHILS # (AUTO) 6.75 x10^3/uL (1.8-6.8); NEUTROPHILS % (AUTO) 76 % (42-75); PLATELET COUNT 226 x10^3/uL (130-400); RED BLOOD COUNT 3.97 x10^6/uL (3.82-5.3); RED CELL DISTRIBUTION WIDTH 13.7 % (9.6-15.2)
[2018-02-27 04:30] LABS: ALBUMIN 3.4 g/dL (3.4-5.0); ANION GAP 9 mmol/L (5-15); CALCIUM 8.5 mg/dL (8.5-10.1); CHLORIDE 103 mmol/L (98-107); CREATININE 0.71 mg/dL (0.55-1.02)
[2018-02-27] MEDS ORDERED: CEFTRIAXONE PMX 1GM/50ML 50 ML IV ONE (04:30)
--- NOTE | 2018-02-27 04:39 | NUR ---
RT ATTEMPTED TO WEEN PT OFF OF BIPAP ONTO OPTIFLOW. PT NOT ABLE TO TOLERATE HIGH VOLUME NASAL CANNULA. PT PLACE BACK ON BIPAP.
[2018-02-27] MEDS ORDERED: CEFTRIAXONE PMX 1GM/50ML 50 ML ONE (04:45)
[2018-02-27 05:09] LABS: RAPID INFLUENZA A Negative (Negative); RAPID INFLUENZA B Negative (Negative)
[2018-02-27] MEDS ORDERED: SODIUM CHLORIDE 0.9% 1,000 ML IV SCH (05:13)
--- NOTE | 2018-02-27 05:17 | NUR ---
PT PLACED ON HIGH FLOW NASAL CANNULA @ 10L AND O2 SAT 99% AND TOLERATING WELL. PT WAS ABLE TO STAND WITH ASSISTANCE TO CHANGE LINENS ON GURNEY. VSS AT THIS TIME. HOLDING HEPARIN DRIP AT THIS TIME PER [facility].
[2018-02-27] MEDS ORDERED: ONDANSETRON 2MG/ML, 2ML IVPush PRN (05:30)
[2018-02-27] MEDS ORDERED: ENOXAPARIN 40 MG/0.4 ML SQ SCH (05:30)
[2018-02-27] MEDS ORDERED: hydrALAzine 20 MG/ML, 1ML IVPush PRN (05:30)
[2018-02-27] MEDS ORDERED: morphine SULFATE 10 MG/ML, 1ML IVPush PRN (05:30)
[2018-02-27] MEDS ORDERED: ALBUTEROL/IPRATROPIUM 2.5MG/0.5MG, 3 ML NPPB PRN ×2 (05:30→07:00)
[2018-02-27] MEDS ORDERED: HEPARIN 5,000 UNITS/ML, 1ML IV PRN ×2 (05:30→09:30)
[2018-02-27] MEDS ORDERED: TEMPLATE NON-FORMULARY MED. (Budesonide/Formoterol Fumarate (Symbicort 160-4.5 Mcg Inhaler INH SCH (05:30)
[2018-02-27] MEDS ORDERED: ONDANSETRON ODT 4 MG PO PRN (05:30)
[2018-02-27] MEDS ORDERED: HEPARIN 5,000 UNITS/ML, 1ML IV ONE ×2 (05:30→09:30)
[2018-02-27] MEDS ORDERED: HEPARIN 25,000 UNITS/500ML PMX 500 ML IV PRN ×2 (05:30→09:30)
--- NOTE | 2018-02-27 05:50 | NUR ---
PT WEENED FROM 10L TO 8L O2 HIGH FLOW NASAL CANNULA, PT IS TOLERATING WELL.
--- NOTE | 2018-02-27 06:18 | NUR ---
PT STARTING TO PANIC AFTER PLANNING TO LEAVE. PT TRYING TO GET OUT OF BED AND PULLING OXYGEN OFF. RT ATTEMPTED TO PLACE PT BACK ON BIPAP AND PT CONT TO REFUSE BIPAP AND YELL. RT STARTING NEB TX AT THIS TIME.
[2018-02-27] MEDS ORDERED: MORPHINE SULFATE 4 MG/ML, 1ML ONE (06:25)
[2018-02-27] MEDS: ALBUTEROL/IPRATROPIUM 2.5MG/0.5MG, 3 ML NPPB SCH ×5 (07:00→21:36)
[2018-02-27] MEDS: INSULIN LISPRO 100 UNITS/ML, PEN SQ-INSULIN SCH ×4 (07:00→20:11)
[2018-02-27] MEDS ORDERED: ALBUTEROL/IPRATROPIUM 2.5MG/0.5MG, 3 ML NPPB SCH (07:30)
[2018-02-27] MEDS: DOXYCYCLINE 100 MG in DEXTROSE 5% 250 ML IV SCH ×2 (08:13→20:11)
[2018-02-27] MEDS: methylPREDNISolone SOD SUCC 125 MG/2 ML IVPush SCH ×4 (08:14→23:48)
[2018-02-27] MEDS: LEVOTHYROXINE 25 MCG TABLET PO SCH (08:14)
[2018-02-27] MEDS: BUDESONIDE 0.5 MG/2 ML INHA NPPB SCH ×2 (08:40→21:00)
[2018-02-27] MEDS ORDERED: ASPIRIN 81 MG TABLET EC PO SCH (09:00)
[2018-02-27] MEDS: CITALOPRAM 20 MG TABLET PO SCH (09:00)
[2018-02-27] MEDS ORDERED: CLOPIDOGREL 75 MG TABLET PO SCH (09:00)
[2018-02-27] MEDS ORDERED: TICAGRELOR 90 MG TABLET ONE (09:44)
[2018-02-27] MEDS ORDERED: NITROGLYCERIN 5 MG/ML, 10ML ONE (09:44)
[2018-02-27] MEDS ORDERED: FENTANYL PF 100 MCG/2ML ONE (09:44)
[2018-02-27] MEDS ORDERED: HEPARIN 1,000 UNITS/ML, 10ML ONE (09:44)
[2018-02-27] MEDS ORDERED: LIDOCAINE 2%, 20ML ONE (09:44)
[2018-02-27] MEDS ORDERED: BIVALIRUDIN 250 MG ONE (09:44)
[2018-02-27] MEDS ORDERED: MIDAZOLAM 1 MG/ML, 5ML ONE (09:44)
[2018-02-27] MEDS ORDERED: VERAPAMIL 2.5 MG/ML, 2ML ONE (09:44)
[2018-02-27] MEDS ORDERED: CLOPIDOGREL 300 MG TABLET ONE (10:06)
[2018-02-27] MEDS ORDERED: FUROSEMIDE 40 MG/4 ML ONE (10:17)
[2018-02-27] MEDS ORDERED: BENZOCAINE 20% SPRAY 0.5ML TP ONE (14:00)
[2018-02-27] MEDS ORDERED: FUROSEMIDE 20 MG/2 ML IV ONE (14:00)
[2018-02-27] MEDS: ATORVASTATIN 80 MG TABLET PO SCH (20:08)
[2018-02-27] MEDS: DIPHENHYDRAMINE 12.5MG/5ML, 10ML UDC PO PRN (20:11)
[2018-02-27] MEDS ORDERED: ATORVASTATIN 40 MG TABLET PO SCH (21:00)
[2018-02-27] MEDS ORDERED: LORazepam 2 MG/ML, 1ML ONE (21:42)
[2018-02-27] MEDS ORDERED: LORazepam 2 MG/ML, 1ML IVPush ONE (22:00)
[2018-02-27] MEDS ORDERED: GUAIFENESIN ER 600 MG TABLET ONE (22:43)
[2018-02-27] MEDS: GUAIFENESIN ER 600 MG TABLET PO SCH (22:45)
[2018-02-28] MEDS: ALBUTEROL/IPRATROPIUM 2.5MG/0.5MG, 3 ML NPPB SCH ×6 (03:00→22:05)
[2018-02-28 03:49] VITALS: BP 109/64
[2018-02-28 04:42] LABS: BASOPHILS % (AUTO) 0 % (0-1); EOSINOPHILS # (AUTO) 0.44 x10^3/uL (0-0.4); EOSINOPHILS % (AUTO) 3 % (1-7); LYMPHOCYTES # (AUTO) 0.33 x10^3/uL (1-3.4); LYMPHOCYTES % (AUTO) 2 % (22-44); MD NO; MEAN CORPUSCULAR HEMOGLOBIN 30.2 pg (27.0-34.8); MEAN CORPUSCULAR HGB CONC 33.3 g/dL (32.4-35.8); MEAN CORPUSCULAR VOLUME 90.8 fL (80-100); MONOCYTES # (AUTO) 0.23 x10^3/uL (0.2-0.8); MONOCYTES % (AUTO) 2 % (2-9); NEUTROPHILS # (AUTO) 12.74 x10^3/uL (1.8-6.8); NEUTROPHILS % (AUTO) 93 % (42-75); PLATELET COUNT 206 x10^3/uL (130-400); RED BLOOD COUNT 3.71 x10^6/uL (3.82-5.3); RED CELL DISTRIBUTION WIDTH 13.5 % (9.6-15.2)
[2018-02-28 04:55] LABS: ALBUMIN 3.2 g/dL (3.4-5.0); ANION GAP 6 mmol/L (5-15); CALCIUM 8.4 mg/dL (8.5-10.1); CHLORIDE 101 mmol/L (98-107)
[2018-02-28 05:06] LABS: ALANINE AMINOTRANSFERASE 55 U/L (12-78); ALKALINE PHOSPHATASE 82 U/L (45-117); BILIRUBIN,TOTAL 0.2 mg/dL (0.2-1.0); CREATININE 1.11 mg/dL (0.55-1.02); THYROID STIMULATING HORMONE 0.283 mIU/L (0.358-3.740); TOTAL PROTEIN 6.1 g/dL (6.4-8.2)
[2018-02-28] MEDS: methylPREDNISolone SOD SUCC 125 MG/2 ML IVPush SCH ×4 (05:30→23:32)
[2018-02-28] MEDS: LEVOTHYROXINE 25 MCG TABLET PO SCH (06:00)
[2018-02-28] MEDS ORDERED: MAGNESIUM SULFATE PMX 4GM/100M 100 ML IVPB ONE (08:30)
[2018-02-28] MEDS: DOXYCYCLINE 100 MG in DEXTROSE 5% 250 ML IV SCH ×2 (08:54→20:45)
[2018-02-28] MEDS: INSULIN LISPRO 100 UNITS/ML, PEN SQ-INSULIN SCH ×4 (08:54→20:56)
[2018-02-28] MEDS: GUAIFENESIN ER 600 MG TABLET PO SCH ×2 (08:59→20:45)
[2018-02-28] MEDS: CITALOPRAM 20 MG TABLET PO SCH (08:59)
[2018-02-28] MEDS: CLOPIDOGREL 75 MG TABLET PO SCH (08:59)
[2018-02-28] MEDS: ASPIRIN 81 MG TABLET EC PO SCH (08:59)
[2018-02-28] MEDS ORDERED: FUROSEMIDE 20 MG/2 ML IV ONE ×3 (10:30→13:30)
[2018-02-28] MEDS: BUDESONIDE 0.5 MG/2 ML INHA NPPB SCH ×2 (10:40→18:44)
[2018-02-28] MEDS ORDERED: BIVALIRUDIN 250 MG ONE (11:36)
[2018-02-28] MEDS ORDERED: MIDAZOLAM 1 MG/ML, 5ML ONE (11:36)
[2018-02-28] MEDS ORDERED: FENTANYL PF 100 MCG/2ML ONE (11:36)
[2018-02-28] MEDS ORDERED: VERAPAMIL 2.5 MG/ML, 2ML ONE (11:36)
[2018-02-28] MEDS ORDERED: NITROGLYCERIN 5 MG/ML, 10ML ONE (11:37)
[2018-02-28] MEDS ORDERED: methylPREDNISolone SOD SUCC 125 MG/2 ML ONE (11:57)
[2018-02-28] MEDS ORDERED: DIPHENHYDRAMINE 50 MG/ML, 1ML ONE (11:57)
[2018-02-28] MEDS ORDERED: ADENOSINE 6 MG/2 ML ONE (12:02)
[2018-02-28] MEDS: GUAIFENESIN/COD200MG-20MG/10ML LIQUID PO PRN (17:41)
[2018-02-28] MEDS: ATORVASTATIN 80 MG TABLET PO SCH (20:45)
[2018-03-01 00:35] VITALS: BP 114/73
[2018-03-01] MEDS: DIPHENHYDRAMINE 12.5MG/5ML, 10ML UDC PO PRN (00:52)
[2018-03-01] MEDS: ALBUTEROL/IPRATROPIUM 2.5MG/0.5MG, 3 ML NPPB SCH ×5 (02:36→19:55)
[2018-03-01] MEDS: LEVOTHYROXINE 25 MCG TABLET PO SCH (05:53)
[2018-03-01] MEDS: GUAIFENESIN/COD200MG-20MG/10ML LIQUID PO PRN (05:53)
[2018-03-01] MEDS: methylPREDNISolone SOD SUCC 125 MG/2 ML IVPush SCH ×4 (05:53→23:12)
[2018-03-01] MEDS: POLYETHYLENE GLYCOL 17 GM PACKET PO PRN (05:53)
[2018-03-01 06:31] VITALS: BP 117/80
[2018-03-01] MEDS: BUDESONIDE 0.5 MG/2 ML INHA NPPB SCH ×2 (08:05→19:55)
[2018-03-01] MEDS: INSULIN LISPRO 100 UNITS/ML, PEN SQ-INSULIN SCH ×4 (08:10→20:29)
[2018-03-01] MEDS: CLOPIDOGREL 75 MG TABLET PO SCH (08:13)
[2018-03-01] MEDS: GUAIFENESIN ER 600 MG TABLET PO SCH ×2 (08:13→20:22)
[2018-03-01] MEDS: CITALOPRAM 20 MG TABLET PO SCH (08:13)
[2018-03-01] MEDS: DOXYCYCLINE 100 MG in DEXTROSE 5% 250 ML IV SCH ×2 (08:13→20:22)
[2018-03-01] MEDS: ASPIRIN 81 MG TABLET EC PO SCH (08:13)
[2018-03-01] MEDS: LISINOPRIL 5 MG TABLET PO SCH (10:39)
[2018-03-01] MEDS: FUROSEMIDE 20 MG TABLET PO SCH (10:39)
[2018-03-01 12:23] VITALS: BP 125/78
[2018-03-01 16:30] LABS: FREE T4 (FREE THYROXINE) 0.64 ng/dL (0.76-1.46)
[2018-03-01 18:45] VITALS: BP 102/63
[2018-03-01] MEDS: ATORVASTATIN 80 MG TABLET PO SCH (20:22)
[2018-03-01] MEDS: ACETAMINOPHEN 325 MG TABLET PO PRN (21:07)
[2018-03-02] MEDS: GUAIFENESIN/COD200MG-20MG/10ML LIQUID PO PRN (00:05)
[2018-03-02 00:33] VITALS: BP 110/70
[2018-03-02] MEDS: LEVOTHYROXINE 25 MCG TABLET PO SCH (05:46)
[2018-03-02] MEDS: methylPREDNISolone SOD SUCC 125 MG/2 ML IVPush SCH ×4 (05:46→23:44)
[2018-03-02] MEDS: ALBUTEROL/IPRATROPIUM 2.5MG/0.5MG, 3 ML NPPB SCH ×4 (06:32→19:03)
[2018-03-02 06:42] LABS: BASOPHILS % (AUTO) 0 % (0-1); EOSINOPHILS # (AUTO) 0.03 x10^3/uL (0-0.4); EOSINOPHILS % (AUTO) 0 % (1-7); LYMPHOCYTES # (AUTO) 0.55 x10^3/uL (1-3.4); LYMPHOCYTES % (AUTO) 4 % (22-44); MD NO; MEAN CORPUSCULAR HEMOGLOBIN 30.5 pg (27.0-34.8); MEAN CORPUSCULAR HGB CONC 33.8 g/dL (32.4-35.8); MEAN CORPUSCULAR VOLUME 90.2 fL (80-100); MEAN PLATELET VOLUME 8.9 fL (7.4-10.4); MONOCYTES # (AUTO) 0.65 x10^3/uL (0.2-0.8); MONOCYTES % (AUTO) 4 % (2-9); NEUTROPHILS # (AUTO) 13.73 x10^3/uL (1.8-6.8); NEUTROPHILS % (AUTO) 92 % (42-75); PLATELET COUNT 213 x10^3/uL (130-400); RED CELL DISTRIBUTION WIDTH 14.2 % (9.6-15.2)
[2018-03-02 06:53] LABS: ANION GAP 7 mmol/L (5-15); CALCIUM 8.6 mg/dL (8.5-10.1); CHLORIDE 101 mmol/L (98-107); CREATININE 1.05 mg/dL (0.55-1.02)
[2018-03-02 08:38] VITALS: BP 116/73
[2018-03-02] MEDS: CITALOPRAM 20 MG TABLET PO SCH (08:55)
[2018-03-02] MEDS: GUAIFENESIN ER 600 MG TABLET PO SCH ×2 (08:55→20:05)
[2018-03-02] MEDS: FUROSEMIDE 20 MG TABLET PO SCH (08:56)
[2018-03-02] MEDS: ASPIRIN 81 MG TABLET EC PO SCH (08:56)
[2018-03-02] MEDS: CLOPIDOGREL 75 MG TABLET PO SCH (08:56)
[2018-03-02] MEDS: LISINOPRIL 5 MG TABLET PO SCH (08:57)
[2018-03-02] MEDS: INSULIN LISPRO 100 UNITS/ML, PEN SQ-INSULIN SCH ×4 (08:58→20:17)
[2018-03-02] MEDS: DOXYCYCLINE 100 MG in DEXTROSE 5% 250 ML IV SCH ×2 (08:59→20:39)
[2018-03-02] MEDS: GUAIFENESIN/DM 200-20MG, 10ML UDC PO PRN (09:42)
[2018-03-02] MEDS: BUDESONIDE 0.5 MG/2 ML INHA NPPB SCH ×2 (10:42→19:03)
[2018-03-02 15:31] VITALS: BP 107/70
[2018-03-02 18:22] VITALS: BP 106/64
[2018-03-02] MEDS: ATORVASTATIN 80 MG TABLET PO SCH (20:05)
[2018-03-02] MEDS: ACETAMINOPHEN 325 MG TABLET PO PRN (20:05)
[2018-03-03 00:21] VITALS: BP 117/74
[2018-03-03] MEDS: GUAIFENESIN/DM 200-20MG, 10ML UDC PO PRN (00:57)
[2018-03-03] MEDS: LEVOTHYROXINE 25 MCG TABLET PO SCH (05:59)
[2018-03-03] MEDS: methylPREDNISolone SOD SUCC 125 MG/2 ML IVPush SCH ×3 (05:59→17:35)
[2018-03-03] MEDS: INSULIN LISPRO 100 UNITS/ML, PEN SQ-INSULIN SCH ×4 (07:00→20:37)
[2018-03-03] MEDS: BUDESONIDE 0.5 MG/2 ML INHA NPPB SCH ×2 (07:05→18:59)
[2018-03-03] MEDS: ALBUTEROL/IPRATROPIUM 2.5MG/0.5MG, 3 ML NPPB SCH ×4 (07:05→18:59)
[2018-03-03 07:48] LABS: BASOPHILS % (AUTO) 0 % (0-1); EOSINOPHILS # (AUTO) 0.01 x10^3/uL (0-0.4); EOSINOPHILS % (AUTO) 0 % (1-7); LYMPHOCYTES # (AUTO) 1.19 x10^3/uL (1-3.4); LYMPHOCYTES % (AUTO) 10 % (22-44); MD NO; MEAN CORPUSCULAR HEMOGLOBIN 29.3 pg (27.0-34.8); MEAN CORPUSCULAR HGB CONC 32.4 g/dL (32.4-35.8); MEAN CORPUSCULAR VOLUME 90.3 fL (80-100); MEAN PLATELET VOLUME 8.6 fL (7.4-10.4); MONOCYTES % (AUTO) 6 % (2-9); NEUTROPHILS # (AUTO) 9.97 x10^3/uL (1.8-6.8); NEUTROPHILS % (AUTO) 84 % (42-75); PLATELET COUNT 237 x10^3/uL (130-400); RED BLOOD COUNT 4.33 x10^6/uL (3.82-5.3); RED CELL DISTRIBUTION WIDTH 14.1 % (9.6-15.2)
[2018-03-03 07:49] VITALS: BP 134/63
[2018-03-03 07:57] LABS: ANION GAP 8 mmol/L (5-15); CALCIUM 8.9 mg/dL (8.5-10.1); CHLORIDE 101 mmol/L (98-107); CREATININE 1.06 mg/dL (0.55-1.02)
[2018-03-03] MEDS: LISINOPRIL 5 MG TABLET PO SCH (08:55)
[2018-03-03] MEDS: CLOPIDOGREL 75 MG TABLET PO SCH (08:55)
[2018-03-03] MEDS: CITALOPRAM 20 MG TABLET PO SCH (08:55)
[2018-03-03] MEDS: GUAIFENESIN ER 600 MG TABLET PO SCH ×2 (08:56→20:19)
[2018-03-03] MEDS: FUROSEMIDE 20 MG TABLET PO SCH (08:56)
[2018-03-03] MEDS: ASPIRIN 81 MG TABLET EC PO SCH (08:56)
[2018-03-03] MEDS: DOXYCYCLINE 100 MG in DEXTROSE 5% 250 ML IV SCH ×2 (08:56→20:19)
[2018-03-03] MEDS: POLYETHYLENE GLYCOL 17 GM PACKET PO PRN (11:35)
[2018-03-03 14:29] VITALS: BP 112/69
[2018-03-03] MEDS: ATORVASTATIN 80 MG TABLET PO SCH (20:18)
[2018-03-03 20:59] VITALS: BP 140/80
[2018-03-03] MEDS: ACETAMINOPHEN 325 MG TABLET PO PRN (21:29)
[2018-03-04] MEDS: methylPREDNISolone SOD SUCC 125 MG/2 ML IVPush SCH ×4 (00:48→16:37)
[2018-03-04 01:15] VITALS: BP 126/78
[2018-03-04] MEDS: LEVOTHYROXINE 25 MCG TABLET PO SCH ×2 (05:40→09:24)
[2018-03-04 06:31] LABS: BASOPHILS % (AUTO) 0 % (0-1); EOSINOPHILS % (AUTO) 0 % (1-7); LYMPHOCYTES # (AUTO) 0.41 x10^3/uL (1-3.4); LYMPHOCYTES % (AUTO) 4 % (22-44); MD NO; MEAN CORPUSCULAR HEMOGLOBIN 29.4 pg (27.0-34.8); MEAN CORPUSCULAR HGB CONC 32.5 g/dL (32.4-35.8); MEAN CORPUSCULAR VOLUME 90.5 fL (80-100); MONOCYTES # (AUTO) 0.75 x10^3/uL (0.2-0.8); MONOCYTES % (AUTO) 7 % (2-9); NEUTROPHILS # (AUTO) 9.32 x10^3/uL (1.8-6.8); NEUTROPHILS % (AUTO) 89 % (42-75); PLATELET COUNT 197 x10^3/uL (130-400); RED BLOOD COUNT 4.06 x10^6/uL (3.82-5.3); RED CELL DISTRIBUTION WIDTH 13.7 % (9.6-15.2)
[2018-03-04 06:38] LABS: CHLORIDE 103 mmol/L (98-107)
[2018-03-04 06:53] LABS: ANION GAP 8 mmol/L (5-15); CALCIUM 8.6 mg/dL (8.5-10.1); CREATININE 0.83 mg/dL (0.55-1.02)
[2018-03-04] MEDS: INSULIN LISPRO 100 UNITS/ML, PEN SQ-INSULIN SCH ×4 (07:00→19:55)
[2018-03-04 07:38] VITALS: BP 117/73
[2018-03-04] MEDS: ALBUTEROL/IPRATROPIUM 2.5MG/0.5MG, 3 ML NPPB SCH ×4 (08:00→19:18)
[2018-03-04] MEDS: DOXYCYCLINE 100 MG in DEXTROSE 5% 250 ML IV SCH ×2 (09:24→19:35)
[2018-03-04] MEDS: FUROSEMIDE 20 MG TABLET PO SCH (09:25)
[2018-03-04] MEDS: GUAIFENESIN ER 600 MG TABLET PO SCH ×2 (09:25→19:35)
[2018-03-04] MEDS: CLOPIDOGREL 75 MG TABLET PO SCH (09:25)
[2018-03-04] MEDS: LISINOPRIL 5 MG TABLET PO SCH (09:25)
[2018-03-04] MEDS: CITALOPRAM 20 MG TABLET PO SCH (09:25)
[2018-03-04] MEDS: ASPIRIN 81 MG TABLET EC PO SCH (09:25)
[2018-03-04] MEDS: BUDESONIDE 0.5 MG/2 ML INHA NPPB SCH ×2 (10:00→19:18)
[2018-03-04 12:28] VITALS: BP 105/64
[2018-03-04] MEDS: ATORVASTATIN 80 MG TABLET PO SCH (19:35)
[2018-03-04 19:59] VITALS: BP 123/70
[2018-03-05] MEDS: methylPREDNISolone SOD SUCC 125 MG/2 ML IVPush SCH ×4 (00:17→17:08)
[2018-03-05 03:44] VITALS: BP 126/77
[2018-03-05 05:25] LABS: BASOPHILS % (AUTO) 0 % (0-1); EOSINOPHILS % (AUTO) 0 % (1-7); LYMPHOCYTES # (AUTO) 0.78 x10^3/uL (1-3.4); LYMPHOCYTES % (AUTO) 6 % (22-44); MD NO; MEAN CORPUSCULAR HEMOGLOBIN 29.7 pg (27.0-34.8); MEAN CORPUSCULAR HGB CONC 32.6 g/dL (32.4-35.8); MEAN CORPUSCULAR VOLUME 91.1 fL (80-100); MONOCYTES % (AUTO) 6 % (2-9); NEUTROPHILS # (AUTO) 10.69 x10^3/uL (1.8-6.8); NEUTROPHILS % (AUTO) 88 % (42-75); PLATELET COUNT 199 x10^3/uL (130-400); RED BLOOD COUNT 3.91 x10^6/uL (3.82-5.3); RED CELL DISTRIBUTION WIDTH 13.6 % (9.6-15.2)
[2018-03-05 05:47] LABS: CHLORIDE 105 mmol/L (98-107)
[2018-03-05 05:57] LABS: ANION GAP 7 mmol/L (5-15); CALCIUM 8.5 mg/dL (8.5-10.1); CREATININE 0.72 mg/dL (0.55-1.02)
[2018-03-05] MEDS: ALBUTEROL/IPRATROPIUM 2.5MG/0.5MG, 3 ML NPPB SCH ×2 (06:00→11:00)
[2018-03-05] MEDS: LEVOTHYROXINE 25 MCG TABLET PO SCH (06:06)
[2018-03-05] MEDS: INSULIN LISPRO 100 UNITS/ML, PEN SQ-INSULIN SCH ×3 (07:00→17:08)
[2018-03-05] MEDS: BUDESONIDE 0.5 MG/2 ML INHA NPPB SCH (07:07)
[2018-03-05 07:32] VITALS: BP 100/62
[2018-03-05] MEDS: DOXYCYCLINE 100 MG in DEXTROSE 5% 250 ML IV SCH (09:14)
[2018-03-05] MEDS: CLOPIDOGREL 75 MG TABLET PO SCH (10:13)
[2018-03-05] MEDS: GUAIFENESIN ER 600 MG TABLET PO SCH (10:13)
[2018-03-05] MEDS: ASPIRIN 81 MG TABLET EC PO SCH (10:13)
[2018-03-05] MEDS: CITALOPRAM 20 MG TABLET PO SCH (10:14)
[2018-03-05] MEDS: FUROSEMIDE 20 MG TABLET PO SCH (10:14)
[2018-03-05 12:14] VITALS: BP 114/69
[2018-03-05] MEDS: POLYETHYLENE GLYCOL 17 GM PACKET PO PRN (12:46)
[2018-03-05] MEDS: LISINOPRIL 5 MG TABLET PO SCH (12:46)
[2018-03-05] MEDS ORDERED: BISACODYL 10 MG SUPP PR PRN (13:30)
[2018-03-05] MEDS ORDERED: POLY17PO5 PO (14:50)
[2018-03-05] MEDS ORDERED: INSU100I11 SQ-INSULIN (14:50)
[2018-03-05] MEDS ORDERED: ATOR-2 PO (14:50)
[2018-03-05] MEDS ORDERED: LISI5TAB7 PO (14:50)
[2018-03-05] MEDS ORDERED: DOXY100V9 PO (14:50)
[2018-03-05] MEDS ORDERED: ALBUTEROL/IPRATROPIUM 2.5MG/0.5MG, 3 ML NPPB SCH (15:00)
[2018-03-05] MEDS ORDERED: CLOP75TA PO (17:01)
== END 2018-03-05 17:21 | DRG 246 ==
LOC: EDBD 03:34 → ED 04:31 → MERGE 04:58 → EDIP 04:58 → ICU 07:00 → 5SO 02-28 19:14
PROVIDERS: ADMIT Hospitalist; ATTEND Hospitalist
PROC: 5A09357 Assistance with Respiratory Ventilation, Less than 24 Consecutive Hours, Continuous Positive Airway Pressure (ICD-10-PCS; principal; 2018-02-27)
PROC: 027034Z Dilation of Coronary Artery, One Artery with Drug-eluting Intraluminal Device, Percutaneous Approach (ICD-10-PCS; 2018-02-27)
PROC: 02703ZZ Dilation of Coronary Artery, One Artery, Percutaneous Approach (ICD-10-PCS; 2018-02-27)
PROC: 4A023N7 Measurement of Cardiac Sampling and Pressure, Left Heart, Percutaneous Approach (ICD-10-PCS; 2018-02-27)
PROC: B2111ZZ Fluoroscopy of Multiple Coronary Arteries using Low Osmolar Contrast (ICD-10-PCS; 2018-02-27)
PROC: 4A023N7 Measurement of Cardiac Sampling and Pressure, Left Heart, Percutaneous Approach (ICD-10-PCS; 2018-02-28)
PROC: B2111ZZ Fluoroscopy of Multiple Coronary Arteries using Low Osmolar Contrast (ICD-10-PCS; 2018-02-28)
PROC: B2151ZZ Fluoroscopy of Left Heart using Low Osmolar Contrast (ICD-10-PCS; 2018-02-28)
DX: I21.4 Non-ST elevation (NSTEMI) myocardial infarction (principal); J96.21 Acute and chronic respiratory failure with hypoxia; I50.21 Acute systolic (congestive) heart failure; J18.9 Pneumonia, unspecified organism; J44.1 Chronic obstructive pulmonary disease with (acute) exacerbation; J44.0 Chronic obstructive pulmonary disease with (acute) lower respiratory infection; E03.9 Hypothyroidism, unspecified; E11.9 Type 2 diabetes mellitus without complications; E78.5 Hyperlipidemia, unspecified; F32.9 Major depressive disorder, single episode, unspecified; F41.9 Anxiety disorder, unspecified; I11.0 Hypertensive heart disease with heart failure; I25.10 Atherosclerotic heart disease of native coronary artery without angina pectoris; I07.1 Rheumatic tricuspid insufficiency; M41.9 Scoliosis, unspecified; M81.0 Age-related osteoporosis without current pathological fracture; Z90.710 Acquired absence of both cervix and uterus; Z95.5 Presence of coronary angioplasty implant and graft; Z99.81 Dependence on supplemental oxygen; Z88.2 Allergy status to sulfonamides; Z91.041 Radiographic dye allergy status; Z79.02 Long term (current) use of antithrombotics/antiplatelets; Z79.82 Long term (current) use of aspirin; Z79.899 Other long term (current) drug therapy; Z87.01 Personal history of pneumonia (recurrent); Z87.891 Personal history of nicotine dependence
CPT/HCPCS: 36415; 36600; 71045; 71046; 74018; 80048; 80053; 82040; 82803; 82962; 83605; 83735; 84100; 84439; 84443; 84481; 84484; 85025; 85520; 87040; 87081; 87400; 93005; 93306; 93308; 93325; 93458; 94640; 94660; 96374; 96375; 99156; 99157; 99291; C1760; C1769; C1894; C9600; G0378; J0153; J0456; J0583; J0696; J1644; J1940; J2250; J2405; J3010; J3490; J7060; J7620; J7626; C1725; C1874; C1887; J1200; J1815; J2060; J2270; J2930; J3475; J7030; J7050; Q9967

== ENCOUNTER 2018-03-13 10:33 | Inpatient (IN) | payer MEDICARE ==
[~2018-03-13] VITALS: Ht 154.9 cm; Wt 80.5 kg
[~2018-03-13 10:33] MED LIST changes: +ATOR-2 PO; +DOXY100V9 PO; +INSU100I11 SQ-INSULIN; +LISI5TAB7 PO; +POLY17PO5 PO
[2018-03-13] MEDS ORDERED: METHOCARBAMOL 750 MG TABLET ONE (11:08)
[2018-03-13] MEDS ORDERED: KETOROLAC 30 MG/1 ML ONE (11:09)
--- NOTE | 2018-03-13 11:25 | NUR ---
PT HAS BEEN MEDICATED PER ORDERS REPOSITIONED IN BED APPERAR MORE AT EASE AT THIS TIME
[2018-03-13] MEDS ORDERED: METHOCARBAMOL 500 MG TABLET PO ONE (11:30)
[2018-03-13] MEDS ORDERED: KETOROLAC 30 MG/1 ML IM ONE (11:30)
[2018-03-13 11:35] LABS: MEAN CORPUSCULAR HEMOGLOBIN 30.2 pg (27.0-34.8); MEAN CORPUSCULAR HGB CONC 33.6 g/dL (32.4-35.8); MEAN CORPUSCULAR VOLUME 89.9 fL (80-100); PLATELET COUNT 178 x10^3/uL (130-400); RED BLOOD COUNT 4.03 x10^6/uL (3.82-5.3); RED CELL DISTRIBUTION WIDTH 13.6 % (9.6-15.2)
[2018-03-13 11:37] LABS: MD YES
[2018-03-13 11:45] LABS: ALANINE AMINOTRANSFERASE 30 U/L (12-78); ALBUMIN 3.1 g/dL (3.4-5.0); ANION GAP 6 mmol/L (5-15); CALCIUM 8.7 mg/dL (8.5-10.1); CHLORIDE 102 mmol/L (98-107); CREATININE 0.68 mg/dL (0.55-1.02)
[2018-03-13 11:49] LABS: ALKALINE PHOSPHATASE 82 U/L (45-117); BILIRUBIN,TOTAL 0.4 mg/dL (0.2-1.0); TOTAL PROTEIN 5.8 g/dL (6.4-8.2); TROPONIN I 0.068 ng/mL (0.000-0.045)
[2018-03-13 11:50] LABS: INTERNATIONAL NORMALIZED RATIO 0.99 (0.93-1.1); PROTHROMBIN TIME 10.5 Seconds (9.6-11.5)
[2018-03-13 12:07] LABS: BAND#(MANUAL) 0.14 x10^3/uL; BANDS%(MANUAL) 1 % (0-7); EOS#(MANUAL) 0.14 x10^3/uL (0.0-0.4); EOS% (MANUAL) 1 % (1-7); LYMPH#(MANUAL) 1.27 x10^3/uL (1-3.4); LYMPHS% (MANUAL) 9 % (22-44); MONOS#(MANUAL) 0.56 x10^3/uL (0.3-2.7); MONOS% (MANUAL) 4 % (2-9); SEG#(MANUAL) 11.99 x10^3/uL (1.8-6.8); SEGS% (MANUAL) 85 % (42-75)
[2018-03-13 12:09] LABS: <PLATELET ESTIMATE> ADEQUATE; <PLT MORPHOLOGY> NORMAL PLT MORPH; ANISOCYTOSIS 1+; OVALOCYTES 1+
--- NOTE | 2018-03-13 12:19 | NUR ---
PT TO AND RETURNED FROM XR
[2018-03-13] MEDS ORDERED: ASPIRIN 81 MG TABLET CHEW ONE (12:34)
[2018-03-13] MEDS ORDERED: ASPIRIN 81 MG TABLET CHEW PO ONE (13:00)
[2018-03-13 14:03] VITALS: BP 146/79
[2018-03-13 14:07] LABS: MICROSCOPIC NOT IND
[2018-03-13 14:11] LABS: CULTURE INDICATED? NO
[2018-03-13] MEDS ORDERED: POLYETHYLENE GLYCOL 17 GM PO PRN (16:00)
[2018-03-13] MEDS ORDERED: TEMAZEPAM 15 MG CAPSULE PO PRN (16:00)
[2018-03-13] MEDS ORDERED: ONDANSETRON 2MG/ML, 2ML IVPush PRN (16:00)
[2018-03-13] MEDS ORDERED: ACETAMINOPHEN 325 MG TABLET PO PRN ×2 (16:00)
[2018-03-13] MEDS: INSULIN LISPRO 100 UNITS/ML, PEN MEDIUM DOSE SS SQ-INSULIN SCH ×2 (16:00→20:43)
[2018-03-13] MEDS ORDERED: hydrALAzine 20 MG/ML, 1ML IVPush PRN (16:00)
[2018-03-13] MEDS ORDERED: POLYETHYLENE GLYCOL 17 GM PACKET PO PRN (16:00)
[2018-03-13] MEDS ORDERED: INSULIN LISPRO 100 UNITS/ML, PEN SQ-INSULIN PRN (16:00)
[2018-03-13] MEDS ORDERED: GADOBUTROL 7.5 MMOL/7.5 ML PFS ONE (17:58)
[2018-03-13 18:26] VITALS: BP 128/76
[2018-03-13] MEDS: METOPROLOL TARTRATE 25 MG TABLET PO SCH (18:27)
[2018-03-13] MEDS: FUROSEMIDE 20 MG TABLET PO SCH (18:27)
[2018-03-13] MEDS: METHOCARBAMOL 500 MG TABLET PO PRN (18:30)
[2018-03-13 19:49] VITALS: BP 89/53
[2018-03-13] MEDS: ATORVASTATIN 80 MG TABLET PO SCH (20:29)
[2018-03-13] MEDS: ENOXAPARIN 40 MG/0.4 ML SQ SCH (20:29)
[2018-03-13 21:12] VITALS: BP 104/68
[2018-03-14] VITALS (7 sets, daily range): BP systolic 98–137; BP diastolic 67–82
[2018-03-14] MEDS: OXYcodone IR 5MG TABLET PO PRN ×2 (01:25→02:05)
[2018-03-14] MEDS ORDERED: ALBUTEROL/IPRATROPIUM 2.5MG/0.5MG, 3 ML NPPB PRN (05:00)
[2018-03-14] MEDS: morphine SULFATE 10 MG/ML, 1ML IVPush PRN ×2 (06:03→06:45)
[2018-03-14] MEDS: LEVOTHYROXINE 25 MCG TABLET PO SCH (06:10)
[2018-03-14] MEDS: METOPROLOL TARTRATE 25 MG TABLET PO SCH ×2 (06:10→18:26)
[2018-03-14] MEDS: METHOCARBAMOL 500 MG TABLET PO PRN ×2 (06:45→18:30)
[2018-03-14] MEDS: INSULIN LISPRO 100 UNITS/ML, PEN MEDIUM DOSE SS SQ-INSULIN SCH ×4 (08:22→20:17)
[2018-03-14] MEDS: FUROSEMIDE 20 MG TABLET PO SCH (09:29)
[2018-03-14] MEDS: CITALOPRAM 20 MG TABLET PO SCH (09:30)
[2018-03-14] MEDS: CLOPIDOGREL 75 MG TABLET PO SCH (09:30)
[2018-03-14] MEDS: ASPIRIN 81 MG TABLET EC PO SCH (09:30)
[2018-03-14] MEDS: LISINOPRIL 5 MG TABLET PO SCH (09:34)
[2018-03-14] MEDS: BUDESONIDE 0.5 MG/2 ML INHA NPPB SCH ×2 (10:15→21:00)
[2018-03-14] MEDS: ALBUTEROL/IPRATROPIUM 2.5MG/0.5MG, 3 ML NPPB SCH ×2 (10:15→21:20)
[2018-03-14 10:17] LABS: TROPONIN I 0.099 ng/mL (0.000-0.045)
[2018-03-14] MEDS: KETOROLAC 30 MG/1 ML IVPush PRN ×2 (12:34→23:57)
[2018-03-14 16:38] LABS: BASOPHILS % (AUTO) 0 % (0-1); EOSINOPHILS # (AUTO) 0.16 x10^3/uL (0-0.4); EOSINOPHILS % (AUTO) 2 % (1-7); LYMPHOCYTES # (AUTO) 1.24 x10^3/uL (1-3.4); LYMPHOCYTES % (AUTO) 13 % (22-44); MD NO; MEAN CORPUSCULAR HEMOGLOBIN 30.2 pg (27.0-34.8); MEAN CORPUSCULAR HGB CONC 33.3 g/dL (32.4-35.8); MEAN CORPUSCULAR VOLUME 90.7 fL (80-100); MEAN PLATELET VOLUME 8.6 fL (7.4-10.4); MONOCYTES # (AUTO) 0.52 x10^3/uL (0.2-0.8); MONOCYTES % (AUTO) 6 % (2-9); NEUTROPHILS # (AUTO) 7.58 x10^3/uL (1.8-6.8); NEUTROPHILS % (AUTO) 80 % (42-75); PLATELET COUNT 144 x10^3/uL (130-400); RED BLOOD COUNT 4.02 x10^6/uL (3.82-5.3); RED CELL DISTRIBUTION WIDTH 14.3 % (9.6-15.2)
[2018-03-14 16:54] LABS: TROPONIN I 0.099 ng/mL (0.000-0.045)
[2018-03-14] MEDS: ENOXAPARIN 40 MG/0.4 ML SQ SCH (20:17)
[2018-03-14] MEDS: ATORVASTATIN 80 MG TABLET PO SCH (20:17)
[2018-03-15 00:30] VITALS: BP 94/66
[2018-03-15] MEDS: METHOCARBAMOL 500 MG TABLET PO PRN (04:46)
[2018-03-15 05:09] VITALS: BP 95/61
[2018-03-15] MEDS: LEVOTHYROXINE 25 MCG TABLET PO SCH ×2 (05:12→05:13)
[2018-03-15] MEDS: METOPROLOL TARTRATE 25 MG TABLET PO SCH ×2 (05:12→05:13)
[2018-03-15 06:17] LABS: TROPONIN I 0.145 ng/mL (0.000-0.045)
[2018-03-15] MEDS: ALBUTEROL/IPRATROPIUM 2.5MG/0.5MG, 3 ML NPPB SCH (08:07)
[2018-03-15] MEDS: BUDESONIDE 0.5 MG/2 ML INHA NPPB SCH (08:07)
[2018-03-15] MEDS: ASPIRIN 81 MG TABLET EC PO SCH (08:40)
[2018-03-15] MEDS: CLOPIDOGREL 75 MG TABLET PO SCH (08:40)
[2018-03-15] MEDS: CITALOPRAM 20 MG TABLET PO SCH (08:40)
[2018-03-15] MEDS: LISINOPRIL 5 MG TABLET PO SCH (08:41)
[2018-03-15] MEDS: KETOROLAC 30 MG/1 ML IVPush PRN (08:41)
[2018-03-15] MEDS: FUROSEMIDE 20 MG TABLET PO SCH (08:41)
[2018-03-15 09:45] VITALS: BP 107/69
[2018-03-15] MEDS: INSULIN LISPRO 100 UNITS/ML, PEN MEDIUM DOSE SS SQ-INSULIN SCH ×2 (10:02→11:19)
[2018-03-15 13:59] LABS: TROPONIN I 0.121 ng/mL (0.000-0.045)
[2018-03-15 14:00] VITALS: BP 111/72
[2018-03-15] MEDS ORDERED: IBUP-653 PO (14:09)
[2018-03-15] MEDS ORDERED: METH500T7 PO (14:09)
== END 2018-03-15 15:17 | disposition home health service (06) | DRG 542 ==
LOC: ED 11:43 → EDIP 12:21 → 5SO 13:56 → DCLOUNGE 03-15 15:05
PROVIDERS: ADMIT Hospitalist; ATTEND Hospitalist
PROC: 0T9B70Z Drainage of Bladder with Drainage Device, Via Natural or Artificial Opening (ICD-10-PCS; principal; 2018-03-13)
DX: M48.56XA Collapsed vertebra, not elsewhere classified, lumbar region, initial encounter for fracture (principal); I21.3 ST elevation (STEMI) myocardial infarction of unspecified site; J96.10 Chronic respiratory failure, unspecified whether with hypoxia or hypercapnia; I50.42 Chronic combined systolic (congestive) and diastolic (congestive) heart failure; E03.9 Hypothyroidism, unspecified; E11.9 Type 2 diabetes mellitus without complications; E78.5 Hyperlipidemia, unspecified; G89.29 Other chronic pain; I11.0 Hypertensive heart disease with heart failure; I25.2 Old myocardial infarction; J84.10 Pulmonary fibrosis, unspecified; Z88.3 Allergy status to other anti-infective agents; M79.7 Fibromyalgia; M81.0 Age-related osteoporosis without current pathological fracture; Z88.2 Allergy status to sulfonamides; Z90.710 Acquired absence of both cervix and uterus; Z95.5 Presence of coronary angioplasty implant and graft; Z99.81 Dependence on supplemental oxygen
CPT/HCPCS: 36415; 71045; 72110; 72157; 72158; 80053; 81003; 82962; 83605; 83880; 84484; 85025; 85610; 93005; 94640; 96372; 99285; A9585; G0378; J1650; J1885; J7620; J7626; J1815; J2270

== ENCOUNTER 2018-04-27 11:45 | Inpatient (IN) | payer MEDICARE ==
[~2018-04-27] VITALS: Ht 154.9 cm; Wt 75.3 kg
[~2018-04-27 11:45] MED LIST changes: +DOXY100C2 PO; -GARL400T5 PO; +GARL400T8 PO; +HYDR50TA13 PO; +IBUP-653 PO; +METH500T7 PO; +PRED10TA PO
[2018-04-27] MEDS ORDERED: SODIUM CHLORIDE FLUSH 10ML SYR IVF ONE (12:30)
[2018-04-27] MEDS ORDERED: KETOROLAC 30 MG/1 ML IVPush ONE (12:30)
[2018-04-27] MEDS ORDERED: KETOROLAC 30 MG/1 ML ONE (12:36)
--- NOTE | 2018-04-27 12:43 | NUR ---
PT TO RAD. PT C/O INCREASING LOW BACK TO RIGHT SIDE FOR LAST 2 DAYS WITH HX OF CHRONIC BACK PAIN. PT ALSO REPORTS NO BM FOR 3 DAYS. [facility]. SPOUSE AT BEDSIDE.
[2018-04-27 12:50] LABS: MEAN CORPUSCULAR HEMOGLOBIN 28.6 pg (27.0-34.8); MEAN CORPUSCULAR HGB CONC 32.1 g/dL (32.4-35.8); MEAN CORPUSCULAR VOLUME 88.9 fL (80-100); MEAN PLATELET VOLUME 9.2 fL (7.4-10.4); PLATELET COUNT 231 x10^3/uL (130-400); RED BLOOD COUNT 4.32 x10^6/uL (3.82-5.3); RED CELL DISTRIBUTION WIDTH 14.5 % (9.6-15.2)
--- NOTE | 2018-04-27 12:54 | NUR ---
REPORT TO MARGI POWERS AT BEDSIDE.
--- NOTE | 2018-04-27 12:58 | NUR ---
REPORT TAKEN FROM GIO MUNOZ AT BEDSIDE. PT A&O, RESPS EVEN AND UNLABORED. PT EDUCATED REGARDING POC INCLUDING PLAN FOR STRAIGHT CATH. AT BEDSIDE. PT VERBALIZES UNDERSTANDING.
[2018-04-27 12:59] LABS: ALBUMIN 3.2 g/dL (3.4-5.0); ANION GAP 8 mmol/L (5-15); CALCIUM 8.7 mg/dL (8.5-10.1); CHLORIDE 104 mmol/L (98-107)
[2018-04-27 13:05] LABS: ALANINE AMINOTRANSFERASE 30 U/L (12-78); ALKALINE PHOSPHATASE 94 U/L (45-117); BILIRUBIN,TOTAL 0.5 mg/dL (0.2-1.0); CREATININE 1.08 mg/dL (0.55-1.02); TOTAL PROTEIN 5.8 g/dL (6.4-8.2); TROPONIN I 0.097 ng/mL (0.000-0.045)
[2018-04-27 13:09] LABS: BASOPHILS % (AUTO) 1 % (0-1); EOSINOPHILS # (AUTO) 0.01 x10^3/uL (0-0.4); EOSINOPHILS % (AUTO) 0 % (1-7); LYMPHOCYTES # (AUTO) 0.45 x10^3/uL (1-3.4); LYMPHOCYTES % (AUTO) 3 % (22-44); MD SCAN; MONOCYTES # (AUTO) 0.17 x10^3/uL (0.2-0.8); MONOCYTES % (AUTO) 1 % (2-9); NEUTROPHILS # (AUTO) 12.29 x10^3/uL (1.8-6.8); NEUTROPHILS % (AUTO) 95 % (42-75)
[2018-04-27 13:21] LABS: MICROSCOPIC NOT IND
[2018-04-27 13:27] LABS: CULTURE INDICATED? NO
--- NOTE | 2018-04-27 14:10 | NUR ---
[facility] INCLUDING PNA ON XRAY AND ELEVATED WBC. PT TO RECEIVE IV ABX ONCE BLOOD CX DRAWN X 2.
[2018-04-27] MEDS ORDERED: VANCOMYCIN 1,200 MG in SODIUM CHLORIDE 0.9% 250 ML IV ONE (14:30)
[2018-04-27] MEDS ORDERED: PIPERACILLIN/TAZO/PMX 4.5GM 100 ML IVPB ONE (14:30)
[2018-04-27] MEDS ORDERED: SODIUM CHLORIDE FLUSH 10ML SYR IVF PRN (14:30)
[2018-04-27] MEDS ORDERED: CEFTRIAXONE PMX 1GM/50ML 50 ML IVPB ONE (14:30)
[2018-04-27] MEDS ORDERED: VANCOMYCIN PER PHARMACY MC ONE (14:30)
[2018-04-27] MEDS ORDERED: AZITHROMYCIN 500 MG in SODIUM CHLORIDE 0.9% 250 ML IVPB ONE (14:30)
--- NOTE | 2018-04-27 14:42 | NUR ---
PT HAS STILL NOT HAD BLOOD CX DRAWN. LAB PAGED TO DRAWN BLOOD CX X 2.
--- NOTE | 2018-04-27 14:59 | NUR ---
lab at bedside for blood cx.
[2018-04-27] MEDS ORDERED: PIPERACILLIN/TAZO/PMX 4.5GM 100 ML IV SCH (15:00)
[2018-04-27] MEDS ORDERED: PHARMACY MAY ADJ FOR RENAL FX MC PRN (15:00)
[2018-04-27] MEDS ORDERED: GUAIFENESIN/DM 200-20MG, 10ML UDC PO PRN (15:00)
[2018-04-27] MEDS ORDERED: POLYETHYLENE GLYCOL 17 GM PACKET PO PRN (15:00)
--- NOTE | 2018-04-27 15:23 | NUR ---
REPORT GIVEN TO GIO BELLA, PT AWAITING TRANSPORT TO [facility] AT THIS TIME. PT A&O, RESPS EVEN AND UNLABORED. NSR ON SHOE LINING FITTER. IV ABX STARTED AFTER BLOOD CX X2 WERE DRAWN. PT UNABLE TO RECALL HOME MEDS, HOSPITALIST ROSHAN NOTIFIED, RECEIVING GIO BELLA NOTIFIED.
--- NOTE | 2018-04-27 15:32 | NUR ---
PT TRANSPORTED TO [facility], PT A&O, RESPS EVEN AND UNLABORED, NADN AT TRANSPORT.
--- NOTE | 2018-04-27 15:33 | NUR ---
[facility] HOME PHARMACY CALLED X2 TO ATTEMPT TO COMPLETE MED REC. THIS RN WAS UNABLE TO REACH ANY PHARMACY STAFF TO VERIFY HOME MEDS. RN ON HOLD FOR TOTAL OF 15 MIN WITH NO RESPONSE FROM STAFF.
[2018-04-27 15:47] VITALS: BP 110/69
[2018-04-27] MEDS ORDERED: TIOT18CA INH ×2 (15:48→15:49)
[2018-04-27] MEDS ORDERED: [UNRECOGNIZED DRUG - OTHER] PO (15:48)
[2018-04-27] MEDS ORDERED: PROAIR INH (15:48)
[2018-04-27] MEDS ORDERED: ESCI10TA10 PO (15:48)
[2018-04-27] MEDS ORDERED: MELO7.5T31 PO (15:48)
[2018-04-27] MEDS ORDERED: [UNRECOGNIZED DRUG - OTHER] PO (15:48)
[2018-04-27] MEDS ORDERED: ATOR20TA37 PO (15:48)
[2018-04-27] MEDS ORDERED: IBUP-1484 PO (15:48)
[2018-04-27] MEDS ORDERED: OMEP-110 PO (15:48)
[2018-04-27] MEDS ORDERED: ROPI0.25 PO (15:48)
--- NOTE | 2018-04-27 16:08 | NUR ---
PTS MEDS ENTERED IN MED REC (VERIFIED BY PT'S PHARMACY) AFTER PT WAS TRANSPORTED TO FLOOR, HOSPITALIST DEVORAH NOTIFIED PT'S MED REC REQUIRES HER REVIEW.
[2018-04-27] MEDS ORDERED: ALBUTEROL/IPRATROPIUM 2.5MG/0.5MG, 3 ML ONE (16:09)
[2018-04-27] MEDS: ALBUTEROL/IPRATROPIUM 2.5MG/0.5MG, 3 ML NPPB SCH ×2 (16:16→22:25)
[2018-04-27 19:45] VITALS: BP 143/86
[2018-04-27] MEDS ORDERED: TEMAZEPAM 15 MG CAPSULE ONE (19:48)
[2018-04-27] MEDS: DOCUSATE 100 MG CAPSULE PO SCH (19:55)
[2018-04-27] MEDS: LACTULOSE 10 GM/15 ML UDC PO SCH ×2 (19:56→19:59)
[2018-04-27] MEDS ORDERED: TEMAZEPAM 15 MG CAPSULE PO PRN (20:00)
[2018-04-27] MEDS: METHOCARBAMOL 500 MG TABLET PO PRN (22:06)
[2018-04-27] MEDS: PIPERACILLIN/TAZO/PMX 3.375GM 50 ML IV SCH (22:55)
[2018-04-28] MEDS: ACETAMINOPHEN 325 MG TABLET PO PRN ×2 (00:13→05:33)
[2018-04-28 02:48] VITALS: BP 134/75
[2018-04-28] MEDS: PIPERACILLIN/TAZO/PMX 3.375GM 50 ML IV SCH ×4 (05:02→23:05)
[2018-04-28 05:11] LABS: BASOPHILS # (AUTO) 0.01 x10^3/uL (0-0.1); BASOPHILS % (AUTO) 0 % (0-1); EOSINOPHILS # (AUTO) 0.11 x10^3/uL (0-0.4); EOSINOPHILS % (AUTO) 1 % (1-7); LYMPHOCYTES # (AUTO) 1.38 x10^3/uL (1-3.4); LYMPHOCYTES % (AUTO) 11 % (22-44); MD NO; MEAN CORPUSCULAR HEMOGLOBIN 28.8 pg (27.0-34.8); MEAN CORPUSCULAR HGB CONC 32.5 g/dL (32.4-35.8); MEAN CORPUSCULAR VOLUME 88.7 fL (80-100); MONOCYTES # (AUTO) 0.89 x10^3/uL (0.2-0.8); MONOCYTES % (AUTO) 7 % (2-9); NEUTROPHILS # (AUTO) 10.68 x10^3/uL (1.8-6.8); NEUTROPHILS % (AUTO) 82 % (42-75); PLATELET COUNT 212 x10^3/uL (130-400); RED BLOOD COUNT 3.87 x10^6/uL (3.82-5.3); RED CELL DISTRIBUTION WIDTH 15.1 % (9.6-15.2)
[2018-04-28 05:12] LABS: ANION GAP 3 mmol/L (5-15); CALCIUM 8.3 mg/dL (8.5-10.1); CHLORIDE 106 mmol/L (98-107)
[2018-04-28 05:16] LABS: ALANINE AMINOTRANSFERASE 29 U/L (12-78); ALKALINE PHOSPHATASE 77 U/L (45-117); BILIRUBIN,TOTAL 0.5 mg/dL (0.2-1.0); CREATININE 0.92 mg/dL (0.55-1.02); TOTAL PROTEIN 5.4 g/dL (6.4-8.2)
[2018-04-28] MEDS: ALBUTEROL/IPRATROPIUM 2.5MG/0.5MG, 3 ML NPPB SCH ×4 (07:30→19:06)
[2018-04-28 07:34] VITALS: BP 132/79
[2018-04-28] MEDS: SENNA/DOCUSATE TABLET PO SCH (08:06)
[2018-04-28] MEDS: DOCUSATE 100 MG CAPSULE PO SCH ×2 (08:06→20:39)
[2018-04-28] MEDS: PANTOPROZOLE 40MG TABLET PO SCH (08:13)
[2018-04-28] MEDS: METHOCARBAMOL 500 MG TABLET PO PRN (08:13)
[2018-04-28] MEDS: LIDODERM 5% PATCH TD SCH ×2 (11:00→11:01)
[2018-04-28 11:32] LABS: TROPONIN I 0.088 ng/mL (0.000-0.045)
[2018-04-28 12:40] VITALS: BP 113/72
[2018-04-28] MEDS: ENOXAPARIN 40 MG/0.4 ML SQ SCH (17:20)
[2018-04-28 20:29] VITALS: BP 114/72
[2018-04-28] MEDS: LACTULOSE 10 GM/15 ML UDC PO SCH (20:39)
[2018-04-29 03:26] VITALS: BP 118/76
[2018-04-29] MEDS: PIPERACILLIN/TAZO/PMX 3.375GM 50 ML IV SCH ×2 (05:04→12:15)
[2018-04-29] MEDS: ALBUTEROL/IPRATROPIUM 2.5MG/0.5MG, 3 ML NPPB SCH ×4 (07:00→20:00)
[2018-04-29] MEDS: LACTULOSE 10 GM/15 ML UDC PO SCH ×2 (07:28→19:44)
[2018-04-29] MEDS: DOCUSATE 100 MG CAPSULE PO SCH ×2 (07:55→19:44)
[2018-04-29 08:00] VITALS: BP 100/65
[2018-04-29] MEDS: ALENDRONATE 10 MG TABLET PO SCH ×2 (08:08→19:45)
[2018-04-29] MEDS: SENNA/DOCUSATE TABLET PO SCH (08:09)
[2018-04-29] MEDS: PANTOPROZOLE 40MG TABLET PO SCH (08:09)
[2018-04-29] MEDS: LIDODERM 5% PATCH TD SCH (11:00)
[2018-04-29 12:55] VITALS: BP 120/70
[2018-04-29] MEDS: GABAPENTIN 100 MG CAPSULE PO SCH ×2 (16:27→19:45)
[2018-04-29] MEDS: ENOXAPARIN 40 MG/0.4 ML SQ SCH (16:28)
[2018-04-29 19:31] VITALS: BP 139/86
[2018-04-29] MEDS: METHOCARBAMOL 500 MG TABLET PO PRN (22:16)
[2018-04-30 00:53] VITALS: BP 141/92
[2018-04-30 05:21] LABS: BASOPHILS # (AUTO) 0.01 x10^3/uL (0-0.1); BASOPHILS % (AUTO) 0 % (0-1); EOSINOPHILS # (AUTO) 0.11 x10^3/uL (0-0.4); EOSINOPHILS % (AUTO) 1 % (1-7); LYMPHOCYTES # (AUTO) 1.13 x10^3/uL (1-3.4); LYMPHOCYTES % (AUTO) 9 % (22-44); MD NO; MEAN CORPUSCULAR HEMOGLOBIN 29.5 pg (27.0-34.8); MEAN CORPUSCULAR HGB CONC 32.9 g/dL (32.4-35.8); MEAN CORPUSCULAR VOLUME 89.7 fL (80-100); MEAN PLATELET VOLUME 8.9 fL (7.4-10.4); MONOCYTES # (AUTO) 0.77 x10^3/uL (0.2-0.8); MONOCYTES % (AUTO) 6 % (2-9); NEUTROPHILS # (AUTO) 10.85 x10^3/uL (1.8-6.8); NEUTROPHILS % (AUTO) 84 % (42-75); PLATELET COUNT 195 x10^3/uL (130-400); RED BLOOD COUNT 3.69 x10^6/uL (3.82-5.3); RED CELL DISTRIBUTION WIDTH 15.4 % (9.6-15.2)
[2018-04-30 05:27] LABS: ANION GAP 3 mmol/L (5-15); CALCIUM 8.5 mg/dL (8.5-10.1); CHLORIDE 106 mmol/L (98-107)
[2018-04-30 05:30] LABS: CREATININE 0.64 mg/dL (0.55-1.02)
[2018-04-30] MEDS: ALBUTEROL/IPRATROPIUM 2.5MG/0.5MG, 3 ML NPPB SCH (07:00)
[2018-04-30 08:06] VITALS: BP 146/80
[2018-04-30] MEDS: METHOCARBAMOL 500 MG TABLET PO PRN (08:06)
[2018-04-30] MEDS: ACETAMINOPHEN 325 MG TABLET PO PRN (08:07)
[2018-04-30] MEDS: GABAPENTIN 100 MG CAPSULE PO SCH (08:08)
[2018-04-30] MEDS: PANTOPROZOLE 40MG TABLET PO SCH (08:09)
[2018-04-30] MEDS: SENNA/DOCUSATE TABLET PO SCH (08:25)
[2018-04-30] MEDS: LACTULOSE 10 GM/15 ML UDC PO SCH (08:25)
[2018-04-30] MEDS: DOCUSATE 100 MG CAPSULE PO SCH (08:25)
[2018-04-30] MEDS: LIDODERM 5% PATCH TD SCH (11:00)
[2018-04-30] MEDS ORDERED: TRAM50TA2 PO (13:01)
[2018-04-30] MEDS ORDERED: METH500T7 PO (13:01)
[2018-04-30] MEDS ORDERED: ALEN10TA6 PO (13:01)
[2018-04-30] MEDS ORDERED: CEFD300C37 PO (13:01)
[2018-04-30] MEDS ORDERED: GABA-826 PO (13:01)
[2018-04-30] MEDS ORDERED: DOCU-131 PO (13:01)
[2018-04-30] MEDS ORDERED: ALBUTEROL/IPRATROPIUM 2.5MG/0.5MG, 3 ML ONE (13:58)
[2018-04-30 14:32] VITALS: BP 140/78
[2018-04-30] MEDS ORDERED: ALBUTEROL/IPRATROPIUM 2.5MG/0.5MG, 3 ML NPPB SCH (16:00)
== END 2018-04-30 14:40 | disposition home or self-care (01) | DRG 542 ==
LOC: ED 12:00 → 4WST 15:45 → DCLOUNGE 04-30 14:28
PROVIDERS: ADMIT Hospitalist; ATTEND Hospitalist
PROC: 0T9B70Z Drainage of Bladder with Drainage Device, Via Natural or Artificial Opening (ICD-10-PCS; principal; 2018-04-27)
DX: M48.56XA Collapsed vertebra, not elsewhere classified, lumbar region, initial encounter for fracture (principal); J15.9 Unspecified bacterial pneumonia; J96.11 Chronic respiratory failure with hypoxia; I24.8 Other forms of acute ischemic heart disease; I50.42 Chronic combined systolic (congestive) and diastolic (congestive) heart failure; J44.0 Chronic obstructive pulmonary disease with (acute) lower respiratory infection; K59.00 Constipation, unspecified; I11.0 Hypertensive heart disease with heart failure; Z88.3 Allergy status to other anti-infective agents; Z88.2 Allergy status to sulfonamides; D63.8 Anemia in other chronic diseases classified elsewhere; E03.9 Hypothyroidism, unspecified; E11.65 Type 2 diabetes mellitus with hyperglycemia; E78.5 Hyperlipidemia, unspecified; F32.9 Major depressive disorder, single episode, unspecified; G89.29 Other chronic pain; M54.9 Dorsalgia, unspecified; I25.10 Atherosclerotic heart disease of native coronary artery without angina pectoris; I25.2 Old myocardial infarction; M79.7 Fibromyalgia; M81.0 Age-related osteoporosis without current pathological fracture; Y95 Nosocomial condition; Z79.84 Long term (current) use of oral hypoglycemic drugs; Z90.710 Acquired absence of both cervix and uterus; Z95.5 Presence of coronary angioplasty implant and graft; Z99.81 Dependence on supplemental oxygen
CPT/HCPCS: 36415; 72072; 72110; 74022; 80048; 80053; 81003; 83605; 83880; 84145; 84484; 85025; 87040; 93005; 94640; 96365; 96375; G0378; J1650; J1885; J2543; J3370; J7620; J7050; J7512

== ENCOUNTER 2018-05-03 04:28 | Observation (INO) | payer MEDICARE ==
[~2018-05-03] VITALS: Ht 154.9 cm; Wt 77.0 kg
[~2018-05-03 04:28] MED LIST changes: +ALEN10TA6 PO; +ATOR20TA37 PO; +DOCU-131 PO; +ESCI10TA10 PO; +GABA-826 PO; +IBUP-1484 PO; +OMEP-110 PO; +PROAIR INH; +ROPI0.25 PO; +TIOT18CA INH; +TRAM50TA2 PO; +[UNRECOGNIZED DRUG - OTHER] PO; +[UNRECOGNIZED DRUG - OTHER] PO
[2018-05-03] MEDS ORDERED: ACETAMINOPHEN 325 MG TABLET ONE (04:47)
[2018-05-03] MEDS ORDERED: CYCLOBENZAPRINE 10 MG TABLET ONE (04:52)
--- NOTE | 2018-05-03 04:57 | NUR ---
BIB [facility] FROM HOME WITH C/O SOB AND LOW BACK PAIN, DENIES FALL. PER [facility] PT JUST COMPLETED DUONEB T/X ON THEIR ARRIVAL, 85% R/A, SPO2 98% ON 4L N/C, PT WEARS 3L N/C O2, 18/09. PT HAS H/X COPD, ASTHMA. HR-95, B/P-140/80. MONITORS APPLIED, SIDERAILS UP X2, CALL LIGHT WITHIN REACH.
--- NOTE | 2018-05-03 04:59 | NUR ---
PT MEDICATED PER MAR
[2018-05-03] MEDS ORDERED: ACETAMINOPHEN 325 MG TABLET PO ONE (05:00)
[2018-05-03] MEDS ORDERED: CYCLOBENZAPRINE 10 MG TABLET PO ONE (05:00)
[2018-05-03 05:16] LABS: MEAN CORPUSCULAR HEMOGLOBIN 30.2 pg (27.0-34.8); MEAN CORPUSCULAR HGB CONC 33.8 g/dL (32.4-35.8); MEAN CORPUSCULAR VOLUME 89.4 fL (80-100); MEAN PLATELET VOLUME 8.3 fL (7.4-10.4); PLATELET COUNT 194 x10^3/uL (130-400); RED BLOOD COUNT 3.73 x10^6/uL (3.82-5.3); RED CELL DISTRIBUTION WIDTH 15.5 % (9.6-15.2)
[2018-05-03 05:23] LABS: ANION GAP 6 mmol/L (5-15); CALCIUM 8.7 mg/dL (8.5-10.1); CHLORIDE 108 mmol/L (98-107); CREATININE 0.67 mg/dL (0.55-1.02)
[2018-05-03 05:25] LABS: MD YES
[2018-05-03 05:32] LABS: TROPONIN I 0.103 ng/mL (0.000-0.045)
--- NOTE | 2018-05-03 05:33 | NUR ---
pt resting on gurney, monitors in place, spouse at bedside, pt denies needs at this time, call light within reach. awaiting lab and xray result
[2018-05-03] MEDS ORDERED: ASPIRIN 81 MG TABLET CHEW ONE (05:37)
[2018-05-03 05:43] LABS: LYMPH#(MANUAL) 1.69 x10^3/uL (1-3.4); LYMPHS% (MANUAL) 12 % (22-44); MONOS#(MANUAL) 0.71 x10^3/uL (0.3-2.7); MONOS% (MANUAL) 5 % (2-9); SEGS% (MANUAL) 83 % (42-75)
[2018-05-03 05:44] LABS: <PLATELET ESTIMATE> ADEQUATE; <PLT MORPHOLOGY> NORMAL PLT MORPH; ANISOCYTOSIS 1+; OVALOCYTES 1+
[2018-05-03] MEDS ORDERED: ASPIRIN 81 MG TABLET CHEW PO ONE (06:00)
--- NOTE | 2018-05-03 06:32 | NUR ---
assisted pt onto bedpan.
--- NOTE | 2018-05-03 06:58 | NUR ---
report given to vida valdovinos
[2018-05-03] MEDS ORDERED: TEMPLATE NON-FORMULARY MED. (Prednisone** 10 MG) PO SCH (07:00)
[2018-05-03] MEDS ORDERED: hydrOXyzine 50MG TABLET PO PRN (07:00)
[2018-05-03] MEDS ORDERED: ALBUTEROL INH PRN (07:00)
--- NOTE | 2018-05-03 07:11 | NUR ---
PT PREFERS TO SIT ON COMMODE AT THIS TIME. HELPED PT TO COMMODE. NO ACUTE DISTRESS NOTED. PT STATES "I WANT TO GO HOME." PT EDUCATED REGARDING POC. BEDSIDE. NO NEEDS REQUESTED AT THIS TIME.
[2018-05-03] MEDS: ENOXAPARIN 40 MG/0.4 ML SQ SCH (07:30)
[2018-05-03] MEDS ORDERED: hydrALAzine 20 MG/ML, 1ML IVPush PRN (07:30)
[2018-05-03] MEDS ORDERED: ONDANSETRON 2MG/ML, 2ML IVPush PRN (07:30)
[2018-05-03] MEDS ORDERED: GUAIFENESIN/DM 200-20MG, 10ML UDC PO PRN (07:30)
[2018-05-03] MEDS ORDERED: ZOLPIDEM 5MG TABLET PO PRN (07:30)
[2018-05-03] MEDS ORDERED: ONDANSETRON ODT 4 MG PO PRN (07:30)
[2018-05-03 07:51] LABS: HCT (SEDRATE) 34.4 % (34.6-47.8)
--- NOTE | 2018-05-03 07:57 | NUR ---
PT NOW BACK ON [facility]. PT HAD BM. NO ACUTE DISTRESS NOTED. NO NEEDS REQUESTED AT THIS TIME.
[2018-05-03 08:03] LABS: TROPONIN I 0.124 ng/mL (0.000-0.045)
[2018-05-03] MEDS ORDERED: ALBUTEROL SULFATE 2.5 MG/3 ML ONE (08:38)
[2018-05-03] MEDS ORDERED: CLOPIDOGREL 75 MG TABLET ONE (08:43)
[2018-05-03] MEDS ORDERED: OMEPRAZOLE 20 MG CAPSULE.DR ONE (08:43)
[2018-05-03] MEDS ORDERED: FUROSEMIDE 20 MG TABLET ONE (08:44)
[2018-05-03] MEDS ORDERED: ASPIRIN 81 MG TABLET EC ONE (08:44)
[2018-05-03] MEDS: ASPIRIN 81 MG TABLET EC PO SCH (08:47)
[2018-05-03] MEDS: FUROSEMIDE 20 MG TABLET PO SCH (08:47)
[2018-05-03] MEDS: OMEPRAZOLE 20 MG CAPSULE.DR PO SCH (08:47)
[2018-05-03] MEDS: DOCUSATE 100 MG CAPSULE PO SCH ×2 (08:48→20:37)
[2018-05-03] MEDS: SENNA/DOCUSATE TABLET PO SCH (08:48)
--- NOTE | 2018-05-03 08:52 | NUR ---
PT RESTING ON GURNEY. NO ACUTE DISTRESS NOTED. BEDSIDE. NO NEEDS REQUESTED AT THIS TIME
--- NOTE | 2018-05-03 08:52 | NUR ---
LATE ENTRY FOR 0815 DIET TRAY DELIVERED. PT SITTING ON SIDE OF GURNEY TO EAT. NO ACUTE DISTRESS NOTED. BEDSIDE.
[2018-05-03] MEDS ORDERED: TIOTROPIUM BROMIDE INH SCH (09:00)
[2018-05-03] MEDS ORDERED: TEMPLATE NON-FORMULARY MED. (Clopidogrel Bisulfate** (Clopidogrel**) 75 MG) PO SCH (09:00)
--- NOTE | 2018-05-03 09:10 | NUR ---
MED REQUEST SENT TO PHARMACY
--- NOTE | 2018-05-03 09:42 | NUR ---
REPORT TO GIO BENNETT. ALL QUESTIONS ANSWERED.
[2018-05-03] MEDS ORDERED: IPRATROPIUM 0.5 MG/2.5 ML INHA HHN SCH ×2 (10:00→21:00)
--- NOTE | 2018-05-03 10:10 | NUR ---
PT TRANSFERRED TO FLOOR. PT LEFT WITH ALL PERSONAL BELONGINGS.
[2018-05-03] MEDS ORDERED: CLOPIDOGREL 75 MG TABLET PO SCH (10:13)
[2018-05-03] MEDS ORDERED: ALBUTEROL/IPRATROPIUM 2.5MG/0.5MG, 3 ML NPPB PRN ×2 (10:30→13:00)
[2018-05-03] MEDS ORDERED: ALBUTEROL SULFATE 2.5MG/0.5ML NPPB PRN (10:30)
[2018-05-03 10:37] VITALS: BP_SYST 104; BP_SYST 112; BP_DIAS 58; BP_DIAS 73
[2018-05-03] MEDS: LIDODERM 5% PATCH TD PRN (11:03)
[2018-05-03] MEDS: METHOCARBAMOL 500 MG TABLET PO PRN (11:06)
[2018-05-03] MEDS: LEVOTHYROXINE 25 MCG TABLET PO SCH (11:06)
[2018-05-03] MEDS: GABAPENTIN 100 MG CAPSULE PO SCH ×3 (11:09→20:37)
[2018-05-03] MEDS: ROPINIROLE 0.25MG TABLET PO SCH ×2 (11:09→20:37)
[2018-05-03] MEDS: ESCITALOPRAM 10MG TABLET PO SCH (11:09)
[2018-05-03] MEDS: MELOXICAM 15 MG TABLET PO SCH (11:10)
[2018-05-03] MEDS: INSULIN LISPRO 100 UNITS/ML, PEN SQ-INSULIN SCH ×3 (12:40→21:00)
[2018-05-03] MEDS ORDERED: ALBUTEROL SULFATE 2.5 MG/3 ML NPPB PRN (13:00)
[2018-05-03 14:27] LABS: TROPONIN I 0.117 ng/mL (0.000-0.045)
[2018-05-03 15:30] VITALS: BP 126/79
[2018-05-03] MEDS ORDERED: PRAMIPEXOLE 0.125MG TABLET PO SCH (21:00)
[2018-05-03] MEDS: ALBUTEROL/IPRATROPIUM 2.5MG/0.5MG, 3 ML NPPB SCH (21:00)
[2018-05-03] MEDS ORDERED: ALBUTEROL/IPRATROPIUM 2.5MG/0.5MG, 3 ML NPPB SCH (21:00)
[2018-05-03] MEDS ORDERED: ATORVASTATIN 20 MG TABLET PO SCH (21:00)
[2018-05-03 21:06] VITALS: BP 110/71
[2018-05-04 01:37] VITALS: BP 142/85
[2018-05-04 05:40] LABS: ANION GAP 4 mmol/L (5-15); CALCIUM 8.5 mg/dL (8.5-10.1); CHLORIDE 107 mmol/L (98-107); CREATININE 0.62 mg/dL (0.55-1.02)
[2018-05-04] MEDS: LEVOTHYROXINE 25 MCG TABLET PO SCH (05:43)
[2018-05-04 05:47] LABS: BASOPHILS % (AUTO) 0 % (0-1); EOSINOPHILS # (AUTO) 0.25 x10^3/uL (0-0.4); EOSINOPHILS % (AUTO) 2 % (1-7); LYMPHOCYTES # (AUTO) 1.43 x10^3/uL (1-3.4); LYMPHOCYTES % (AUTO) 14 % (22-44); MD NO; MEAN CORPUSCULAR HEMOGLOBIN 29.3 pg (27.0-34.8); MEAN CORPUSCULAR HGB CONC 32.8 g/dL (32.4-35.8); MEAN CORPUSCULAR VOLUME 89.3 fL (80-100); MEAN PLATELET VOLUME 8.8 fL (7.4-10.4); MONOCYTES # (AUTO) 0.54 x10^3/uL (0.2-0.8); MONOCYTES % (AUTO) 5 % (2-9); NEUTROPHILS # (AUTO) 8.15 x10^3/uL (1.8-6.8); NEUTROPHILS % (AUTO) 79 % (42-75); PLATELET COUNT 200 x10^3/uL (130-400); RED BLOOD COUNT 3.66 x10^6/uL (3.82-5.3); RED CELL DISTRIBUTION WIDTH 15.9 % (9.6-15.2)
[2018-05-04] MEDS ORDERED: ALENDRONATE 10 MG TABLET PO SCH (06:30)
[2018-05-04] MEDS: INSULIN LISPRO 100 UNITS/ML, PEN SQ-INSULIN SCH ×2 (06:40→12:30)
[2018-05-04 07:15] VITALS: BP 131/86
[2018-05-04 07:22] VITALS: BP 88/50
[2018-05-04] MEDS ORDERED: ROPINIROLE 0.5MG TABLET ONE (08:51)
[2018-05-04] MEDS: GABAPENTIN 100 MG CAPSULE PO SCH (08:56)
[2018-05-04] MEDS: METHOCARBAMOL 500 MG TABLET PO PRN (08:57)
[2018-05-04] MEDS: LIDODERM 5% PATCH TD PRN (08:57)
[2018-05-04] MEDS: OMEPRAZOLE 20 MG CAPSULE.DR PO SCH (09:01)
[2018-05-04] MEDS: FUROSEMIDE 20 MG TABLET PO SCH (09:01)
[2018-05-04] MEDS: ESCITALOPRAM 10MG TABLET PO SCH (09:01)
[2018-05-04] MEDS: ASPIRIN 81 MG TABLET EC PO SCH (09:01)
[2018-05-04] MEDS: MELOXICAM 15 MG TABLET PO SCH (09:02)
[2018-05-04] MEDS: DOCUSATE 100 MG CAPSULE PO SCH (09:02)
[2018-05-04] MEDS: ROPINIROLE 0.25MG TABLET PO SCH (09:02)
[2018-05-04] MEDS: ENOXAPARIN 40 MG/0.4 ML SQ SCH (09:05)
[2018-05-04] MEDS: SENNA/DOCUSATE TABLET PO SCH (09:05)
[2018-05-04] MEDS: ALBUTEROL/IPRATROPIUM 2.5MG/0.5MG, 3 ML NPPB SCH (10:25)
[2018-05-04 12:15] VITALS: BP 126/85
== END 2018-05-04 15:20 | disposition home or self-care (01) ==
LOC: ED 05:58 → EDIP 06:23 → INTOOBSV 06:23 → 5SO 10:04
PROVIDERS: ADMIT Internal Medicine; ATTEND Internal Medicine
DX: M54.5 Low back pain (principal); E03.9 Hypothyroidism, unspecified; E11.9 Type 2 diabetes mellitus without complications; E78.5 Hyperlipidemia, unspecified; F32.9 Major depressive disorder, single episode, unspecified; G89.29 Other chronic pain; I50.32 Chronic diastolic (congestive) heart failure; I11.0 Hypertensive heart disease with heart failure; I25.10 Atherosclerotic heart disease of native coronary artery without angina pectoris; I25.2 Old myocardial infarction; J44.9 Chronic obstructive pulmonary disease, unspecified; K59.00 Constipation, unspecified; M79.7 Fibromyalgia; M81.0 Age-related osteoporosis without current pathological fracture; Z90.710 Acquired absence of both cervix and uterus; Z91.19 Patient's noncompliance with other medical treatment and regimen; Z95.5 Presence of coronary angioplasty implant and graft; Z99.81 Dependence on supplemental oxygen
CPT/HCPCS: 36415; 71045; 80048; 82040; 82962; 83880; 84484; 85025; 85651; 93005; 94640; 96372; 97161; 97165; 99284; G0378; J1815; J7512; J7620

== ENCOUNTER 2018-12-30 15:56 | Inpatient (IN) | payer MEDICARE ==
[~2018-12-30] VITALS: Ht 157.5 cm; Wt 67.1 kg
[~2018-12-30 15:56] MED LIST changes: -ALEN10TA6 PO; +ALEN10TA7 PO; -IBUP-1484 PO; +IBUP-1902 PO; +LEVO50TA PO; +LIOT25TA12 PO; -LIOT25TA3 PO; +hydrocodone; +lisinopril; +lorazapam; +venlafaxine
--- NOTE | 2018-12-30 16:14 | NUR ---
BIB [facility]. C/O SOB STARTING 1400 TODAY. HX COPD, ASTHMA, ANXIETY. PT GIVEN 2 DOSES ALBUTEROL, 2 DOSES DUONEB, 125MG SOLUMEDROL. PT STATES SHE CANNOT BREATHE, BUT OXYGEN LEVEL AT 100%. STATES PT IS HAVING ANXIETY AT THIS TIME, USUALLY A&O4. CONNECTED TO MONITORINGL. FALL PRECAUTIONS IN PLACE. CALL LIGHT IN REACH.
[2018-12-30] MEDS ORDERED: LORazepam 2 MG/ML, 1ML ONE (16:18)
--- NOTE | 2018-12-30 16:22 | NUR ---
MEDS ADMINSITERED PER APR.
[2018-12-30] MEDS ORDERED: SODIUM CHLORIDE FLUSH 10ML SYR IVF ONE (16:30)
[2018-12-30] MEDS ORDERED: LORazepam 2 MG/ML, 1ML IV ONE (16:30)
[2018-12-30 16:52] LABS: MD YES; MEAN CORPUSCULAR HEMOGLOBIN 30.3 pg (27.0-34.8); MEAN CORPUSCULAR HGB CONC 32.7 g/dL (32.4-35.8); MEAN CORPUSCULAR VOLUME 92.8 fL (80-100); MEAN PLATELET VOLUME 8.4 fL (7.4-10.4); PLATELET COUNT 230 x10^3/uL (130-400); RED BLOOD COUNT 3.98 x10^6/uL (3.82-5.3); RED CELL DISTRIBUTION WIDTH 14.9 % (9.6-15.2)
--- NOTE | 2018-12-30 17:01 | NUR ---
MEDS ADMIN WERE EFFECTIVE FOR HER ANXIETY.
[2018-12-30 17:04] LABS: ALBUMIN 3.7 g/dL (3.4-5.0); ANION GAP 9 mmol/L (5-15); CALCIUM 8.4 mg/dL (8.5-10.1); CHLORIDE 104 mmol/L (98-107); CREATININE 0.74 mg/dL (0.55-1.02)
[2018-12-30 17:08] LABS: TROPONIN I < 0.015 ng/mL (0.000-0.045)
[2018-12-30 17:23] LABS: <PLATELET ESTIMATE> ADEQUATE; <PLT MORPHOLOGY> NORMAL PLT MORPH; <RBC MORPHOLOGY> NORMAL; EOS#(MANUAL) 0.23 x10^3/uL (0.0-0.4); EOS% (MANUAL) 4 % (1-7); LYMPHS% (MANUAL) 14 % (22-44); MONOS#(MANUAL) 0.46 x10^3/uL (0.3-2.7); MONOS% (MANUAL) 8 % (2-9); SEG#(MANUAL) 4.22 x10^3/uL (1.8-6.8); SEGS% (MANUAL) 74 % (42-75)
--- NOTE | 2018-12-30 17:26 | NUR ---
ALL RESULTS ARE BACK AT THIS TIME. CHART UP FOR RECHECK.
--- NOTE | 2018-12-30 17:58 | NUR ---
PT GIVEN SNACKS AND PUDDING PER HER REQUEST. OKAYED FOR DIET.
[2018-12-30] MEDS ORDERED: SODIUM CHLORIDE FLUSH 10ML SYR IVF PRN (18:00)
[2018-12-30 19:30] VITALS: BP 129/79
[2018-12-30] MEDS: ROPINIROLE 0.25MG TABLET PO SCH (22:58)
[2018-12-30] MEDS: ATORVASTATIN 40 MG TABLET PO SCH (22:58)
[2018-12-30] MEDS: GABAPENTIN 100 MG CAPSULE PO SCH (22:58)
[2018-12-30] MEDS: ENOXAPARIN 40 MG/0.4 ML SQ SCH (22:59)
[2018-12-30] MEDS ORDERED: LIDODERM 5% PATCH TD PRN (23:00)
[2018-12-30] MEDS ORDERED: ONDANSETRON ODT 4 MG PO PRN (23:00)
[2018-12-30] MEDS ORDERED: hydrALAzine 20 MG/ML, 1ML IVPush PRN (23:00)
[2018-12-30] MEDS ORDERED: DOCUSATE 100 MG CAPSULE PO PRN (23:00)
[2018-12-30] MEDS: ACETAMINOPHEN 325 MG TABLET PO PRN (23:51)
[2018-12-31 00:35] VITALS: BP 153/81
[2018-12-31] MEDS: TEMAZEPAM 15 MG CAPSULE PO PRN ×2 (00:37→20:39)
[2018-12-31] MEDS ORDERED: ALBUTEROL/IPRATROPIUM 2.5MG/0.5MG, 3 ML ONE (03:41)
[2018-12-31] MEDS: ACETAMINOPHEN 325 MG TABLET PO PRN ×2 (03:57→18:22)
[2018-12-31] MEDS: LEVOTHYROXINE 50 MCG TABLET PO SCH (05:39)
[2018-12-31] MEDS: OMEPRAZOLE 20 MG CAPSULE.DR PO SCH (05:39)
[2018-12-31] MEDS: ALBUTEROL/IPRATROPIUM 2.5MG/0.5MG, 3 ML NPPB SCH ×4 (06:45→20:00)
[2018-12-31 07:45] VITALS: BP 156/81
[2018-12-31] MEDS: ESCITALOPRAM 10MG TABLET PO SCH (08:24)
[2018-12-31] MEDS: ROPINIROLE 0.25MG TABLET PO SCH ×2 (08:24→20:39)
[2018-12-31] MEDS: FUROSEMIDE 20 MG TABLET PO SCH (08:24)
[2018-12-31] MEDS: CLOPIDOGREL 75 MG TABLET PO SCH (08:24)
[2018-12-31] MEDS: GABAPENTIN 100 MG CAPSULE PO SCH ×3 (08:24→20:39)
[2018-12-31] MEDS: methylPREDNISolone SOD SUCC 125 MG/2 ML IVPush SCH ×3 (10:07→22:38)
[2018-12-31] MEDS: CEFTRIAXONE PMX 1GM/50ML 50 ML IV SCH (10:17)
[2018-12-31] MEDS: DOXYCYCLINE 100MG TABLET PO SCH ×2 (10:23→20:39)
[2018-12-31 15:00] VITALS: BP 141/98
[2018-12-31 19:54] VITALS: BP 162/78
[2018-12-31] MEDS: ATORVASTATIN 40 MG TABLET PO SCH (20:39)
[2018-12-31] MEDS: ENOXAPARIN 40 MG/0.4 ML SQ SCH (22:38)
[2019-01-01 02:33] VITALS: BP 187/92
[2019-01-01] MEDS: methylPREDNISolone SOD SUCC 125 MG/2 ML IVPush SCH ×4 (04:13→21:24)
[2019-01-01] MEDS: LEVOTHYROXINE 50 MCG TABLET PO SCH (05:53)
[2019-01-01] MEDS: OMEPRAZOLE 20 MG CAPSULE.DR PO SCH (05:55)
[2019-01-01] MEDS: ALBUTEROL/IPRATROPIUM 2.5MG/0.5MG, 3 ML NPPB SCH ×4 (07:10→20:00)
[2019-01-01 07:22] VITALS: BP 165/93
[2019-01-01] MEDS: DOXYCYCLINE 100MG TABLET PO SCH ×2 (07:57→21:21)
[2019-01-01] MEDS: ESCITALOPRAM 10MG TABLET PO SCH (07:57)
[2019-01-01] MEDS: FUROSEMIDE 20 MG TABLET PO SCH (07:57)
[2019-01-01] MEDS: ROPINIROLE 0.25MG TABLET PO SCH ×2 (07:57→21:21)
[2019-01-01] MEDS: GABAPENTIN 100 MG CAPSULE PO SCH ×3 (07:57→21:21)
[2019-01-01] MEDS: CLOPIDOGREL 75 MG TABLET PO SCH (07:57)
[2019-01-01] MEDS: CEFTRIAXONE PMX 1GM/50ML 50 ML IV SCH (10:31)
[2019-01-01 13:17] VITALS: BP 159/87
[2019-01-01 19:55] VITALS: BP 139/79
[2019-01-01] MEDS ORDERED: ALBUTEROL/IPRATROPIUM 2.5MG/0.5MG, 3 ML NPPB PRN (21:00)
[2019-01-01] MEDS: TEMAZEPAM 15 MG CAPSULE PO PRN (21:21)
[2019-01-01] MEDS: ATORVASTATIN 40 MG TABLET PO SCH (21:21)
[2019-01-01] MEDS: ENOXAPARIN 40 MG/0.4 ML SQ SCH (23:01)
[2019-01-02 01:19] VITALS: BP 153/89
[2019-01-02] MEDS: methylPREDNISolone SOD SUCC 125 MG/2 ML IVPush SCH ×2 (04:27→10:57)
[2019-01-02] MEDS: OMEPRAZOLE 20 MG CAPSULE.DR PO SCH (06:04)
[2019-01-02] MEDS: LEVOTHYROXINE 50 MCG TABLET PO SCH (06:05)
[2019-01-02] MEDS: GABAPENTIN 100 MG CAPSULE PO SCH (08:29)
[2019-01-02] MEDS: ROPINIROLE 0.25MG TABLET PO SCH (08:29)
[2019-01-02] MEDS: ESCITALOPRAM 10MG TABLET PO SCH (08:29)
[2019-01-02] MEDS: DOXYCYCLINE 100MG TABLET PO SCH (08:30)
[2019-01-02] MEDS: FUROSEMIDE 20 MG TABLET PO SCH (08:30)
[2019-01-02] MEDS: CLOPIDOGREL 75 MG TABLET PO SCH (08:30)
[2019-01-02 08:37] VITALS: BP 149/82
[2019-01-02] MEDS: CEFTRIAXONE PMX 1GM/50ML 50 ML IV SCH (10:57)
[2019-01-02 15:51] VITALS: BP 161/85
[2019-01-02] MEDS ORDERED: PRED10TA PO (16:02)
[2019-01-02] MEDS ORDERED: FLUT1DIS3 INH (16:02)
[2019-01-02] MEDS ORDERED: ALPR0.5T6 PO (16:02)
[2019-01-02] MEDS ORDERED: IPRA3AMP30 NPPB (16:02)
[2019-01-02] MEDS ORDERED: LISI5TAB PO (16:02)
[2019-01-02] MEDS ORDERED: LIDO700A20 TD (16:02)
[2019-01-02] MEDS ORDERED: DOXY100T PO (16:02)
== END 2019-01-02 18:25 | disposition home health service (06) | DRG 189 ==
LOC: ED 18:00 → EDIP 19:08 → 3N 19:41
PROVIDERS: ADMIT Internal Medicine; ATTEND Internal Medicine
DX: J96.21 Acute and chronic respiratory failure with hypoxia (principal); I50.32 Chronic diastolic (congestive) heart failure; E03.9 Hypothyroidism, unspecified; E11.40 Type 2 diabetes mellitus with diabetic neuropathy, unspecified; E11.69 Type 2 diabetes mellitus with other specified complication; E78.5 Hyperlipidemia, unspecified; F41.1 Generalized anxiety disorder; I11.0 Hypertensive heart disease with heart failure; I25.10 Atherosclerotic heart disease of native coronary artery without angina pectoris; I25.2 Old myocardial infarction; I35.8 Other nonrheumatic aortic valve disorders; J43.9 Emphysema, unspecified; K21.9 Gastro-esophageal reflux disease without esophagitis; Z88.3 Allergy status to other anti-infective agents; M79.7 Fibromyalgia; M81.0 Age-related osteoporosis without current pathological fracture; Z88.2 Allergy status to sulfonamides; Z82.5 Family history of asthma and other chronic lower respiratory diseases; Z90.710 Acquired absence of both cervix and uterus; Z91.19 Patient's noncompliance with other medical treatment and regimen; Z99.81 Dependence on supplemental oxygen
CPT/HCPCS: 36415; 71045; 80048; 82040; 83605; 83880; 84484; 85025; 87040; 93005; 94640; G0378; J0696; J1650; J7620; J0360; J2060; J2930

== ENCOUNTER 2019-01-03 10:22 | Emergency (ER) | payer MEDICARE ==
[~2019-01-03] VITALS: Ht 152.4 cm; Wt 61.4 kg
[~2019-01-03 10:22] MED LIST changes: +ALPR0.5T6 PO; +DOXY100T PO; +FLUT1DIS3 INH; +LIDO700A20 TD; +LISI5TAB PO
--- NOTE | 2019-01-03 10:38 | NUR ---
BIB [facility] FOR C/O SOB STARTED YESTERDAY BEFORE PT WAS DC'D FROM [facility]. PT WAS ADMITTED X 3 DAYS FOR SOB. WAS GIVEN [address] ALBUTEROL AND [address] JUDGE[address] WAS DC'D FROM [facility] W/ XANAX RX WAS NOT FILLED. PT STATES SHE IS ANXIOUS. VS SUPREME COURT JUDGE HR 80, 99% 4L NC, BP 150/83. DENIES CP. MONITORS APPLIED. EKG COMPLETED. WARM BLANKET PROVIDED.
--- NOTE | 2019-01-03 11:30 | NUR ---
ERP DR. QUEEN AT BEDSIDE.
[2019-01-03 11:45] VITALS: BP 151/88
--- NOTE | 2019-01-03 11:45 | NUR ---
PT PROVIDED W/ VANILLA PUDDING, MILK, AND PAZ COOKIES. AWARE OF POC FOR DC. , AT BEDSIDE, IS AWARE AND AGREEABLE W/ POC FOR DC.
== END 2019-01-03 12:25 | disposition home or self-care (01) ==
LOC: ED 12:19
DX: F41.1 Generalized anxiety disorder (principal); R06.4 Hyperventilation; I11.0 Hypertensive heart disease with heart failure; I50.9 Heart failure, unspecified; J44.9 Chronic obstructive pulmonary disease, unspecified; I25.2 Old myocardial infarction; I25.10 Atherosclerotic heart disease of native coronary artery without angina pectoris; E11.9 Type 2 diabetes mellitus without complications
CPT/HCPCS: 82962; 93005; 99284

== ENCOUNTER 2019-01-12 09:46 | Emergency (ER) | payer MEDICARE ==
[~2019-01-12] VITALS: Ht 154.9 cm; Wt 79.5 kg
--- NOTE | 2019-01-12 09:59 | NUR ---
Patient brought in by EMS for reported anxiety, per EMS patient has a long standing history of anxiety with difficulty controlling anxiety and repeated EMS calls and visits to local hospitals. Patient reportedly took two of her 0.5mg Ativan tablets at 0845 this morning. Patient lives at home with her . Patient states she is anxious, feels she cannot catch her breath and is hungry; patient repeatedly asks for food throughout triage and assessment process. Patient does not appear to be in distress at this time, reports that she ate breakfast and does have enough food at home. No interventions by EMS, patient arrives on her baseline 4 liters of oxygen via nasal cannula. Continuous blood pressure, SPO2 and cardiac monitoring in place.
--- NOTE | 2019-01-12 10:12 | NUR ---
Diet tray ordered from kitchen as requested by Dr. Garcia
--- NOTE | 2019-01-12 10:32 | NUR ---
Patient continues to ask for food despite being told multiple times that a tray was ordered from dietary.
--- NOTE | 2019-01-12 10:32 | NUR ---
Patient given applesauce.
--- NOTE | 2019-01-12 10:37 | NUR ---
Patient again asking for food, patient again reminded that food was ordered from cafeteria. Patient encouraged to practice patience. at bedside.
[2019-01-12 10:49] VITALS: BP 121/69
--- NOTE | 2019-01-12 11:09 | NUR ---
Diet tray did not arrive prior to discharge. Patient is discharged with her in no acute distress. Discharge instructions discussed, verbalize understanding, questions answered. Patient's states he brought oxygen in the car, patient wheeled to discharge desk with supplemental oxygen.
== END 2019-01-12 11:11 | disposition home or self-care (01) ==
LOC: ED 09:57
DX: F41.1 Generalized anxiety disorder (principal); J44.9 Chronic obstructive pulmonary disease, unspecified; I25.10 Atherosclerotic heart disease of native coronary artery without angina pectoris; I11.0 Hypertensive heart disease with heart failure; I50.9 Heart failure, unspecified; E11.9 Type 2 diabetes mellitus without complications; Z86.39 Personal history of other endocrine, nutritional and metabolic disease
CPT/HCPCS: 71045; 99284